=== PATIENT | male | born 1950 | race Caucasian/White ===

== ENCOUNTER → 2018-01-18 07:31 | Outpatient (CLI) | payer OTHER, SELFPAY ==
[2018-01-18 08:08] LABS: Add Manual Diff / Slide Review NO; Basophils Percent Auto 1.1 % (0-2); Eosinophils Percent Auto 2.8 % (2-4); Hematocrit 42.6 % (41-53); Hemoglobin 14.6 g/dL (13.5-17.5); Mean Corpuscular HGB Conc 34.1 % (30-36); Mean Corpuscular Hemoglobin 32.7 PG (26-34); Mean Corpuscular Volume 95.8 fL (80-100); Monocytes Percent Auto 10.2 % (3-14); Neutrophils Absolute Auto 5100 /uL (3000-5900); Neutrophils Percent Auto 68.9 % (50-75); Platelet Count 307 X10^3/uL (150-400); Red Blood Cell Count 4.45 X10^6/uL (4.5-5.9); Red Cell Distribution Width 14.1 % (11.6-14.8); White Blood Cell Count 7.5 X10^3/uL (4.5-11.0)
[2018-01-18 08:18] LABS: Blood Urea Nitrogen 20 mg/dL (9-20); Calcium 9.2 mg/dL (8.4-10.2); Carbon Dioxide 27 mmol/L (22-32); Chloride 104 mmol/L (98-107); Estimated Glomerular Filt Rate > 60.0 mL/min (>60); Glucose 99 mg/dL (80-110); HEMOLYSIS < 15 (0-50); Sodium 142 mmol/L (137-145)
== END ==
PROVIDERS: Visit Provider Orthopaedic Surgery Orthopaedic Surgery of the Spine
DX: Z01.812 Encounter for preprocedural laboratory examination (principal)
CPT/HCPCS: 36415; 80048; 85025; 93005

== ENCOUNTER 2018-02-15 06:13 | Inpatient (IN) | payer OTHER, MEDICARE, SELFPAY ==
[2018-01-28 10:50] VITALS: BMI 27.0
[2018-02-15] VITALS (17 sets, daily range): BP systolic 88–134; BP diastolic 53–99; PULSE 76–96; RESP 10–18; TEMP 36.1–36.8; O2SAT 94–99; BMI 27.0; BMI 29.5
--- NOTE | 2018-02-15 | DI.RAD.S_ITS ---
PROCEDURE: XR LUMBAR SPINE 2-3V INDICATIONS: L4-5, L5-S1 TLIF TECHNIQUE: 2 views of the lumbar spine were acquired. COMPARISON: [facility], , MR LUMBAR SPINE WO CON, 07/24/2017, 9:04. FINDINGS: 2 intraoperative fluoroscopy images demonstrate discectomy and posterior fusion at L4-L5 and L5-S1. Pedicular screws and fusion rods are in expected position. IMPRESSION: Discectomy and posterior fusion at L4-L5 and L5-S1. Dictated by: Adrian Sarkar M.D. on 02/15/2018 at 13:59 Approved by: Adrian Sarkar M.D. on 02/15/2018 at 14:00
[2018-02-15] MEDS: LACTATED RINGERS 1,000 ML 42 ML IV (07:20)
[2018-02-15] MEDS: CEFAZOLIN 2 GM/100 ML FROZ.PIGGY IV ×3 (07:53→23:51)
[2018-02-15] MEDS: ACETAMINOPHEN 1,000 MG/100 ML VIAL IV (08:05)
--- NOTE | 2018-02-15 08:35 | SUR.OPER ---
Prone on spine table, head in foam head support, padded chest and pelvic supports, gel pad at knees, lower legs supported by pillows; nipples, genitalia and toes free of pressure, arms secured on foam padded arm boards at <90 degrees abduction. Tape over blanket at thigh secured to table.
[2018-02-15] MEDS: BUPIVACAINE 0.25% W/ EPI VIAL 30 ML INJ (08:42)
[2018-02-15] MEDS: BUPIVACAINE LIPOSOME 266 MG/20 ML VIAL INJ (08:43)
--- NOTE | 2018-02-15 11:56 | PM.OP.1 ---
Operative Date/Time/Diagnoses Date of procedure: 02/15/18 Time of procedure: 08:21 Pre-op diagnosis: 1. L3-4, L4-5, L5-S1 spinal stenosis 2. L3-4, L4-5, L5-S1 spondylosis with radiculopathy Post-op diagnosis: same Procedure & Clinicians Procedure: 1. L4-5, L5-S1 Postero-lateral and posterior interbody fusion 2. L4-5, L5-S1 interbody cage placement. 3. L4-5, L5-S1 decompressive laminectomy with bilateral facetecomies 4. L4-5, L5-S1 Posterior segmental instrumentation 5. L3-4 hemilaminectomy 5. Luxor of bone marrow from iliac crest 6. Utilization of microsurgical technique and operating microscope Same procedure as scheduled: Yes Indications: Patient has been having chronic back pain and worsening lumbar radiculopathy. Patient failed multiple conservative management with worsening pain weakness and numbness in her lower extremity. Patient has been having difficulty performing activity of daily living. After discussing risks benefits of treatment options, patient elected proceed with surgery. Surgeon: Ismael Hammonds Suppression Crew Leader: Haley Foley Click Yes if Unassisted: No Anesthesia Type: General Operative Notes Closure Type: primary Implants & Drains: Globus Revolve screws, Rise cages Applied: catheter Estimated Blood Loss (mL): 50 Blood products transfused: none Procedure in detail: Patient was seen in the preoperative area. Risks and benefits of the surgery was discussed with the patient. Informed consent was obtained from the patient and placed in the chart. Surgical site was marked. Patient was taken to the operative room. General anesthesia was administered. Prophylactic antibiotic was given to the patient less than 30 min before the incision was made. Patient was placed into a prone position on the Ezequiel table. Patient's back was then prepped and draped in the sterile fashion. Time-out was performed at this time. Using AP and lateral C-arm imaging the interval between L4-S1 was identified and marked on patient's back. A 2 inch incision 2 in from midline was made on the right side first. The fascia was incised in line with skin incision. Globus MARS retractors was placed inside the incision and docked onto the L4 and L5 lamina. Using microsurgical technique and operating microscope, a L4 and L5 laminectomy and L4-5 L5-S1 facetectomy was performed using a Kerrison rongeur. The disc space at L4-5, L5-S1 was identified. And a total diskectomy was performed at L4-5, L5-S1 level. The endplates were decorticated using a rasp and shaver. The total diskectomy and decortication was performed at L4-5, L5-S1 level in order to to accomplish a L4-5, L5-S1 fusion. The local bone from the laminectomy and facetectomy was saved for local bone grafting. After the total diskectomy and decortication was completed, Globus viacell bone graft material was combined with local bone that was harvested earlier. At this time, a separate skin is incision was made over the iliac crest. A Jamshidi needle was inserted into the iliac crest through a separate skin incision. 5 cc of bone marrow aspiration was obtained through the separate skin incision using a Jamshidi needle from the iliac crest. The bone marrow aspiration was combined with local bone and the via cell bone grafting material. The bone grafting material was placed into the L4-5, L5-S1 interbody space along with two cages, one expandable cage at each level. The cages were expanded to their maximum height using the torque limiting screwdriver. At this time the MARS retractor was redirected over the L3 lamina. Using microsurgical technique and operating microscope, a L3-4 heminectomy was performed using the Kerrison rongeur. The ligamentum flavum was also resected at the side of the hemilaminectomy for further decompression of the epidural space. At this time a mirror image incision was made on the left side. The fascia was incised in line with the skin incision. Globus MARS retractor was inserted and docked onto the L4-5, L5-S1 posterolateral gutter. Using the power drill, posterior-lateral decortication was performed at L4-5, L5-S1 level until bleeding cortical bone was identified. The remaining bone grafting material was placed into the L4-5 L5-S1 posterior lateral gutter he order to accomplish posterolateral fusion at the L4-5 L5-S1 levels. Using the double C-arm technique, pedicle screws were placed into the L4, L5, S1 pedicles bilaterally. This was done by placing the Jamshidi needle into the pedicles, then placing the guidewires over the Jamshidi needle, and finally placing the cannulated screws over the guidewires bilaterally. After the pedicle screws were placed, 2 titanium rods was locked into the heads of the pedicle screws using locking caps and torque limiting screwdriver. Total 6 pedicles screws were placed. After all the hardware was placed, and confirmed with AP and lateral C-arm imaging, the wound was then irrigated with sterile normal saline and packed with Ray-Renae gauze for 3 min to accomplish hemostasis. After the gauze was removed the deep fascia was closed with #1 Vicryl suture. The subcutaneous layer was closed with 2-0 Vicryl. The skin was closed with skin sunday. Patient tolerated the procedure well. There were no complications. Complications: none Condition: stable Disposition: PACU Plan for aftercare: Admit to inpatient hospital
--- NOTE | 2018-02-15 12:40 | SUR.PHASEI ---
1213 Kunz cath secured to left thigh. Scd's on. Skin warm and dry, resp unlabored.
[2018-02-15] MEDS: HYDROMORPHONE 2 MG INJ 0.5 MG IV (12:58)
--- NOTE | 2018-02-15 13:28 | SUR.PHASEI ---
1315 late entry; Prepared to take to acute care. scant drainage on left lateral steri-strips. Skin warm and dry, resp even and regular. Moving independently in bed, reminded not to twist; to log roll. To room 203, bed down and locked, call light within reach, report given, SCD's on; present, Urine clear yellow to gravity. No questions from staff. clothing bag to room.
--- NOTE | 2018-02-15 13:40 | PC.NURSE ---
POST OP ARRIVAL - pt is awake, states not Pain, moving restlessly in bed, +cms feet, wiggles toes on command, footie scd on, ra 95%, bs clear, has some slight serosang drainage leakage from the steristrips l torso, dsg cdi, placed a folded 2x2 w/op site over the steristrips, repositioned more comfortably, garcia w/small qty yellow urine, per PACU nurse, emptied 150ml prior to transfer, denies nausea and given ice chips.
[2018-02-15] MEDS: hydrOXYzine pamoate 25 MG CAPSULE PO ×3 (14:00→23:52)
[2018-02-15] MEDS: HYDROMORPHONE 1 MG INJ 0.5 MG IV (14:02)
[2018-02-15] MEDS: SODIUM CHLORIDE 0.9% 1,000 ML 100 ML IV (14:09)
--- NOTE | 2018-02-15 15:44 | PC.NURSE ---
Day Shift- Report rec'd from VALERIA Rahman in PACU at 1305 on current pt status. Pt arrived to unit via bed into room 203 at 1320, Floor RN Samreen able to do bedside report from TRAILER BODY ASSEMBLER. Pt c/o lower back hurt, tight, how I feel at home with my back pain. Pt repeated that he needs to get OOB and walk to help his low back pain. Reinforced that he just came from recovery and we will have PT see him as soon as possible. Pt repositioned in bed onto right side supported with pillows and used FARHAT bed to tilt as well. Ice pack placed to low back. Vistaril & Dilaudid prn given at 1405. Pt's Leena at bedside for support.
--- NOTE | 2018-02-15 16:58 | PT.IIE ---
Current Diagnoses Spondylolisthesis, lumbosacral region (02/15/18) Other spondylosis with radiculopathy, lumbar region (02/15/18) Spinal stenosis, lumbar region without neurogenic claudication (02/15/18) Surgery Performed Operation Date: 02/15/18 07:45 Actual Procedures p L3-4 left Hemilaminectomy, L4-5, L5-S1 TLIF w/Posterior Instru. - Ismael Hammonds MD Surgical History (Last Updated 01/28/18 @ 11:18 by Jennifer Manzo RN) H/O vasectomy (Acute) Hx of detached retina repair (Acute) Hx of hernia repair (Acute) Hx of tonsillectomy (Acute) Status post cataract extraction of both eyes with insertion of intraocular lens (Acute) Status post knee surgery Medical History (Last Updated 01/28/18 @ 11:18 by Jennifer Manzo RN) Arthritis (Acute) Back pain (Acute) Elevated cholesterol (Acute) Malignant melanoma (Acute ~1997) Migraines (Acute) Nerve pain due to spinal stenosis (Acute) Numbness (Acute) Osteoarthritis (Acute) RLS (restless legs syndrome) (Acute) Spinal stenosis (Acute) Spondylolisthesis at L5-S1 level (Acute) Physical Therapy Inpatient Evaluation/Re-Eval M1 PT/OT-IP Prior Functional Status Start: 02/15/18 16:21 Freq: NEEDED Status: Active Protocol: Document 02/15/18 16:15 NFW (Rec: 02/15/18 16:58 NFW [id number]) Medical Review Prior Functional Status Medical History Reviewed Yes Diet/Fluid Consistency Regular Communication Patient has been restless since arriving on the floor and anxious to get up. Mobility and Gait Prior to surgery patient did not use any assistive devices for mobility or gait. Activities of Daily Living and IADL's Pt reports independence in dressing including shoes and socks prior to surgery. He also reports independence with hygiene. Prior Functional Level (Other details) Pt able to drive as needed. Works fulltime in the [employer]. Social History Household Members spouse Living Arrangements House Number of Floors (Floors) Two Floors Number of Stairs To Enter/Railing? 2 steps to enter home, no railing. 2 steps then 13 steps to go upstairs where his bedroom is. Handrail on the left with ascending. has made adjustments in the home for pt to stay downstairs until he is able to handle the stairs. Home Environment Standard Height Toilet Tub/Shower Home Equipment Front Wheel Walker Straight Cane Long Handled Sponge Long Handled Shoe Horn Employment Status Construction Executive Employed Additional Social History Comment At work he does average 1.7 miles of walking each day. He also has days where he is in the car for extended times. M2 PT-IP Current Condition Start: 02/15/18 16:21 Freq: NEEDED Status: Active Protocol: Document 02/15/18 16:15 NFW (Rec: 02/15/18 16:58 NFW [id number]) Physical Therapy Current Condition Current Condition Evaluation Date 02/15/18 Treatment Diagnosis s/p L4-5, L5-S1 Postero- lateral and posterior interbody fusion Onset Date 02/15/18 Precautions Lumbar Precautions Log Roll No Twisting Limit Bending Lifting Restriction of 10 lbs Other Precautions Stated lifting restriction of 5 lbs. Discussion proper hinging at hips and avoiding any flexion at the spine. Weight Bearing Status Weight Bearing Status Full Weight Bearing M3 PT-IP Subjective Start: 02/15/18 16:21 Freq: NEEDED Status: Active Protocol: Document 02/15/18 16:15 NFW (Rec: 02/15/18 16:58 NFW [id number]) Subjective Physical Therapy Visit Type Type Initial Evaluation Visit Start Time 15:25 Visit Stop Time 16:15 Total Visit Minutes 50 Number of REAL ESTATE OFFICE MANAGER Visits 0 Physical Therapy Visit Comments Patient Comments Patient uncomfortable in bed and restless. Patient Goals Return home with , Eneida . Therapy Pain Assessment Pain When Pain Assessed During Mobility M4 PT-IP Mobility and Gait Start: 02/15/18 16:21 Freq: NEEDED Status: Active Protocol: Document 02/15/18 16:15 NFW (Rec: 02/15/18 16:58 NFW [id number]) PT-Bed Mobility Assessment Rolling Type of Rolling Roll to Right Level of Assist Minimal Assistance 1 Person Assistance Supine to Sit Supine to Sit Minimal Assistance 1 Person Assistance Scooting Scooting to Edge of Bed Contact Guard Assistance PT-Transfer Assessment Sit to and From Stand Sit to and from Stand Contact Guard Assistance 1 Person Assistance Equipment Transfer Assistive Device Gait Belt Front Wheeled Walker Orthotic/Prosthetic Devices or Brace: No Transfers Transfer Destination Chair Transfer Ability Level of Assist Contact Guard Assistance 1 Person Assistance Comments Mobility Comments BP at rest 129/88, pulse 92. BP siting 143/69, pulse 97. O2 95 Gait Assessment Gait Gait Assistance Required: Contact Guard Assist Distance (Feet) 30 Able to Maintain Weight Bearing Status Yes During Gait Assistive Devices Assistive Device Gait Belt Front Wheeled Walker Orthotic/Prosthetic Devices or Brace: No Gait Deviations General Gait Pattern Decreased Stride Length Factors Limiting Gait Function Factors Limiting Gait Function Abnormal Tonal Influences Decreased Activity Tolerance Decreased Strength Comments Gait Comments Patient ambulated 15' x 2 CGA. Some lightheadedness noted after each walk. PT-Balance Assessment Sitting Balance and Reactions Static Sitting Balance Ability Good Dynamic Sitting Balance Ability Good Standing Balance and Reactions Static Standing Balance Ability Good Dynamic Standing Balance Ability Good M5 PT-IP Objective Assessments Start: 02/15/18 16:21 Freq: NEEDED Status: Active Protocol: Document 02/15/18 16:15 NFW (Rec: 02/15/18 16:58 NFW [id number]) Orientation Orientation/Cognition Level of Alertness Alert Language Function Ability No Deficits Noted Safety Awareness Understands Safety Issues Memory Description No Deficits Noted Gross Range of Motion Lower Extremity ROM Assessment Within Functional Limits Strength Comments Strength Comments MMT to long toe extensors 5/5 nyla. Sensation Assessment Sensation Gross Sensation WNL Light Touch Intact Proprioception (Position) Intact Muscle Tone Muscle Tone WNL Yes M6 PT-IP Treatment Start: 02/15/18 16:21 Freq: NEEDED Status: Active Protocol: Document 02/15/18 16:15 NFW (Rec: 02/15/18 16:58 NFW [id number]) Physical Therapy Treatment Education Education Provided Precautions Post-Op Packet Safety M7 PT-IP Assessment and Plan Start: 02/15/18 16:21 Freq: NEEDED Status: Active Protocol: Document 02/15/18 16:15 NFW (Rec: 02/15/18 16:58 NFW [id number]) PT Summary Assessment and Plan Potential Rehabilitation Potential Excellent Status of Condition at Evaluation Stable Summary Impairments Pain ROM Strength Balance Coordination Tone Bed Mobility Transfers Gait Activity Tolerance Progress Towards Goals Progressing Toward Goals Assessment Summary Pt s/p lumbar fusion. Main complaint of restlessness. Revealed good form and judgement with bed mobility activities and ambulation. Endurance and general strength needs improvement. Receptive to educational material provided. Goals Bed Mobility Goal Independent Transfer Goal Independent Gait Goal Independent Other Goals Ability to ascend and descend 2 steps with SPC. Days to Meet Goals 2 Frequency of Treatment Frequency Of Treatment Twice a Day Treatment Plan Physical Therapy Treatment Plan Bed Mobility Training Transfer Training Gait Training Therapeutic Exercise Balance Retraining Post Op Education Coordination Retraining Recommendations To Nursing Amount of Assist Needed 1 Person Assist Discharge Recommendations PT Discharge Recommendations Home with Assistance Other Discharge Recommendations Home with .
[2018-02-15] MEDS: ACETAMINOPHEN 325 MG TABLET 650 MG PO (17:26)
[2018-02-16] MEDS: SODIUM CHLORIDE 0.9% 1,000 ML 100 ML IV (00:01)
[2018-02-16] MEDS: ACETAMINOPHEN 325 MG TABLET 650 MG PO ×3 (05:04→20:30)
[2018-02-16 05:19] VITALS: BP 111/58; PULSE 92; RESP 16; TEMP 37.4; O2SAT 95
[2018-02-16 06:25] LABS: Hematocrit 35.9 % (41-53); Hemoglobin 12.3 g/dL (13.5-17.5)
[2018-02-16 08:30] VITALS: BP 103/66; PULSE 93; RESP 16; TEMP 36.6; O2SAT 94
[2018-02-16] MEDS: hydrOXYzine pamoate 25 MG CAPSULE PO ×3 (08:32→16:56)
--- NOTE | 2018-02-16 09:18 | PM.PNPO.1 ---
Subjective Date Patient Seen: 02/16/18 Time Patient Seen: 09:18 Interval history: Hospital day 2, postop day 1 following L3-4 hemilaminectomy, L4-5, L5-S1 TLIF with cage and anterior plate by Dr. Hammonds. Patient is remained stable postoperatively. Has noted some increased numbness to the bilateral anterior thighs. The lower legs good. Does have Kunz catheter in which was to remain in for 2 days postop. He has been up with physical therapy. Lab this morning noted H&H 12.3/35.9. Exam Vital Signs (past 8 hours): - 02/16/18 05:19 02/16/18 08:30 Temperature 99.3 F 97.8 F Pulse Rate 92 H 93 H Respiratory Rate 16 16 Blood Pressure 111/58 L 103/66 Pulse Oximetry 95 94 Oxygen Delivery Method Room Air Oxygen Flow Rate 0 Narrative Exam Narrative: Alert, oriented no acute distress resting in bed. Back dressing to lumbar area is dry with some small areas of shadowing. Smaller dressing to the left back as gauze and Tegaderm with serosanguineous drainage. This appears dry. Legs. No calf pain or swelling. Pulses symmetrical. Good sensation to touch to lower legs but has decreased sensation to bilateral thighs. Good strength on ankle dorsiflexion plantar flexion. He is able to fire her quads bilateral. Objective Labs Result Diagrams: 02/16/18 06:13 Labs: Laboratory Results - last 24 hr 02/16/18 06:13 Hgb 12.3 L Hct 35.9 L Assessment & Plan Post-op Postoperative Procedures Operation Date: 02/15/18 07:45 Actual Procedures Side Surgeon p L3-4 left Hemilaminectomy, L4-5, L5-S1 TLIF w/Posterior Instru. Ismael Hammonds MD Plan: I will add dexamethasone 4 mg q.8h to see if this will help with his back and leg symptoms. Patient will work with physical therapy today. Anticipate discharge home tomorrow if he is stable with physical therapy and able to void. Quality VTE Deep Vein Thrombosis/Pulmonary Embolism Present on Admission: No
--- NOTE | 2018-02-16 10:18 | CM.DANOTE ---
Patient is a 68 year old male who was admitted on 02/15/18 for TLIF. Pt has [facility] for insurance and his PCP is Dr. Mason. EMR was reviewed. Per Ortho MD, pt tolerated surgical procedure well yesterday and per PT pt can likely d/c safely home with spouse assist when medically stable but still needs to do CG training. SW met bedside with pt and explained role and pt confirmed that he lives at home with his in [place] and is very Independent at baseline and is quite active. Pt does not use DME for ambulation at baseline and drives and has a plan to stay in the main level bedroom in their house for a while prior to doing stairs to get to their second level. Pt preference is to d/c home and does not anticipate any d/c planning needs. Pt's spouse can likely provide transport at d/c. Plan: SW to follow for likely pt d/c home with spouse assist when medically stable. SW to follow for any further identified discharge planning needs. YAYA Duron Discharge Planning/Care Management CM Discharge Assessment Start: 02/16/18 10:11 Freq: Status: Active Protocol: Document 02/16/18 10:12 BF (Rec: 02/16/18 10:18 [id number]) Discharge Planning Assessment Assigned Pulmonologist Intensivist YAYA Loving DPOA/Assigned Designee Name Eneida Contact Information [phone] Advance Directives? Yes Advance Directives on File No History Provided By Patient Significant Other Medical Record Has Patient been admitted in last 30 No days? Prior Living Arrangements House Household Members spouse Type of transporation used prior to Drives own vehicle admit Comment Independent at baseline and no DME needed at base. Independent with ADL's Yes Is patient alert and oriented? Yes Caregiver for Another No Comment Likely home with spouse assist when stable Barriers to Discharge No Discharge Plan Home Community Services Physical Therapy Transportation Arrangement Spouse likely can provide transport at d/c. Referrals Initiated None needed Whiteboard Updated in Patient Room with Yes name and ext. # of Pulmonologist Intensivist Review Status In Process Please Provide Date Initial DC 02/16/18 Assessment Was Performed Next Review Type Continued Stay Review Pre-Anesthesia Assessment Start: 01/28/18 10:50 Freq: Status: Complete Protocol: Document 01/28/18 10:50 CAB (Rec: 01/28/18 11:28 CAB [id number]) Pre-Anesthesia Assessment Patient Also Known As Patel (AKA) Patient Information Reviewed Via Phone Assessment Assessment Completed With Patient Lab Results BMP/CMP CBC EKG Comment Labs/EKG at 01/18/18 Primary Care Provider Andrew Mason Seen Specialist in Last 12 Months Yes Specialist Seen Orthopedist Primary Language Lao Montessori Preschool Teacher Required No Height 172.72 cm Weight 80.739 kg Body Mass Index (BMI) 27.0 Hearing Ability Normal Visual Impairment No Limitations Visual Assist None Dentition Type Teeth, Natural Present Dental Implants Barriers to Learning None Other Aids No Hx Anesthesia Reactions No Hx Family Anesthesia Reaction No Hx Malignant Hyperthermia No Hx Blood Transfusions No Anesthesia Review Requested No Residential Pest Control Technician No alcohol intake current alcohol intake frequency a few times a month Smoking Status Current every day smoker Smoking packs per day 0.75 Substance Use Type does not use Pain Present Pain Reported Musculoskeletal Symptoms Abnormal Gait Back Pain Difficulty Walking Muscle Spasms Muscle Weakness Numbness History of Falling (Recent or History of No ) Patient is completely paralyzed or No completely immobile Mental Status Oriented to own ability Is patient on oxygen? No Does patient have BURTON/SOB No Hx Sleep Apnea No Suspected Sleep Apnea No Currently Taking a Beta Jeannie No Can You Climb a Flight of Stairs Without Yes SOB Hx Chest Pain No Hx SOB No Hx Syncope or Dizziness No Anti-Coagulant Therapy No Has a Education And Training Coordinator No Cardiac Testing No Hx Pacemaker/ICD No Pacemaker Rep Required? No Cardiac Clearance Received Not Applicable Diet Type At Home Regular dysphagia No Urinary Catheter Present No Hx Urinary Self Catheterization No Diabetes No Hx Drug Resistant Organism No Presence of External or Internal Medical No Devices Have you traveled outside the [facility] States in the last 30 days? Marital Status Lives With spouse Prior Living Arrangements House Number of Floors (Floors) Two Floors Number of Stairs To Enter/Railing? 1 step, no railing Support System Child/Children Sibling(s) Spouse Does the Patient Have Assistance After Yes Surgery Patient Discharge Plan Description Return Home Comment Pt advised 2 day length of stay per surgeon's office Feels Safe in Current Environment Yes Been Physically Hurt or Threatened By a No Person in Current Environment Do you have thoughts of harming yourself None or others? Are you currently considering suicide? No Do you have a plan to hurt yourself or No Plan others? Do You Have Any Spiritual Beliefs That No May Affect Your HC Choices? Do You Have Any Cultural Practices That No May Affect Your HC Choices? Spiritual Referral In-House School Inspector Comment Zoroastrianism Who Can We Speak to About Patient's Care Family, friends Identifying Code for Release of Patient Declines to issue Information Health Care Proxy/Next of Kin Eneida () Health Care Proxy Emergency Contact Name Eneida () Emergency Contact Advance Directives? Yes Advance Directives on File No Requested Patient Bring Advanced Yes Directives DOS Power of Operational Communication Chief Yes Power of Operational Communication Chief Name Eneida () Power of Operational Communication Chief PAC Instructions Durable medical equipment Medications to take/avoid Nasal antibiotic No ETOH/petroleum product on skin DOS NPO Post-op transportation Pre-surgical wash Sturdy shoes/comfortable clothes Do not bring valuables and remove jewelry
[2018-02-16] MEDS: DEXAMETHASONE 4 MG TABLET PO ×2 (10:38→16:56)
[2018-02-16] MEDS: OXYCODONE IR 10 MG TABLET PO ×4 (10:40→20:31)
--- NOTE | 2018-02-16 10:45 | PT.IPTN ---
Current Diagnoses Spondylolisthesis, lumbosacral region (02/15/18) Other spondylosis with radiculopathy, lumbar region (02/15/18) Spinal stenosis, lumbar region without neurogenic claudication (02/15/18) Surgery Performed Operation Date: 02/15/18 07:45 Actual Procedures p L3-4 left Hemilaminectomy, L4-5, L5-S1 TLIF w/Posterior Instru. - Ismael Hammonds MD Physical Therapy Treatment Note M2 PT-IP Current Condition Start: 02/15/18 16:21 Freq: NEEDED Status: Active Protocol: Document 02/16/18 10:45 [facility] (Rec: 02/16/18 11:38 [facility] [id number]) Physical Therapy Current Condition Current Condition Evaluation Date 02/15/18 Treatment Diagnosis s/p L4-5, L5-S1 Postero- lateral and posterior interbody fusion Onset Date 02/15/18 Precautions Lumbar Precautions Log Roll No Twisting Limit Bending Lifting Restriction of 10 lbs Other Precautions Stated lifting restriction of 5 lbs. Discussion proper hinging at hips and avoiding any flexion at the spine. Weight Bearing Status Weight Bearing Status Full Weight Bearing M3 PT-IP Subjective Start: 02/15/18 16:21 Freq: NEEDED Status: Active Protocol: Document 02/16/18 10:45 [facility] (Rec: 02/16/18 11:38 [facility] [id number]) Subjective Physical Therapy Visit Type Type Treatment Note Visit Start Time 10:14 Visit Stop Time 10:45 Total Visit Minutes 31 Number of MILLING MACHINE OPERATOR GEAR Visits 0 Physical Therapy Visit Comments Patient Comments pt reports he is still numb in the B thighs. Therapy Pain Assessment Pain When Pain Assessed During Mobility Pain Present Pain Present Pain Reported Location Lower Back Intensity 8 Scale Used Numeric (1 - 10) M4 PT-IP Mobility and Gait Start: 02/15/18 16:21 Freq: NEEDED Status: Active Protocol: Document 02/16/18 10:45 [facility] (Rec: 02/16/18 11:38 [facility] [id number]) PT-Bed Mobility Assessment Rolling Type of Rolling Log Rolling Level of Assist Standby Assistance Sit to Supine Sit to Supine Standby Assistance PT-Transfer Assessment Sit to and From Stand Sit to and from Stand Independent Equipment Transfer Assistive Device Gait Belt Front Wheeled Walker Transfers Transfer Destination Bed Transfer Technique Stand Step Pivot Transfer Ability Level of Assist Standby Assistance Comments Mobility Comments no cuing required for reverse log roll into bed. Gait Assessment Gait Gait Assistance Required: Standby Assistance Distance (Feet) 250 Assistive Devices Assistive Device Gait Belt Front Wheeled Walker Gait Deviations General Gait Pattern Antalgic Factors Limiting Gait Function Factors Limiting Gait Function Pain Stair Climbing Assessment Evaluation Level of Assist On Stairs Standby Assistance Devices Stair Climbing Assistive Devices Left Railing Technique/Endurance Stair Climbing Direction Ascend and Descend Stair Climbing Technique Step to Step Number of Steps Climbed 3 Query Text: M5 PT-IP Objective Assessments Start: 02/15/18 16:21 Freq: NEEDED Status: Active Protocol: Document 02/16/18 10:45 [facility] (Rec: 02/16/18 11:38 [facility] [id number]) Sensation Assessment Comments Sensation Comments intact light touch Bilateral thighs, pt agrees he can feel it but feels different M6 PT-IP Treatment Start: 02/15/18 16:21 Freq: NEEDED Status: Active Protocol: Document 02/16/18 10:45 [facility] (Rec: 02/16/18 11:38 [facility] [id number]) Physical Therapy Treatment Education Education Provided Precautions Safety M7 PT-IP Assessment and Plan Start: 02/15/18 16:21 Freq: NEEDED Status: Active Protocol: Document 02/16/18 10:45 [facility] (Rec: 02/16/18 11:38 [facility] [id number]) PT Summary Assessment and Plan Summary Progress Towards Goals Progressing Toward Goals Safe For Discharge Assessment Summary Pt at this time has ambulated 250 ft with a FWW and SBA, and also completed stairs safely with SBA. Pt with high levels of reported pain but is able to mobilize safely. He initially had c/o numbness in the bilateral thighs, but light touch intact and no buckling. Expect pt to be able to d/c home when medically stable. Goals Bed Mobility Goal Independent Transfer Goal Independent Gait Goal Independent Other Goals Ability to ascend and descend 2 steps with SPC. Days to Meet Goals 2 Frequency of Treatment Frequency Of Treatment Twice a Day Treatment Plan Other Recommendations and Next Treatment cont. mobility, log roll, Focus review precautions, gait. Recommendations To Nursing Amount of Assist Needed 1 Person Assist Discharge Recommendations PT Discharge Recommendations Home with Assistance Other Discharge Recommendations Home with .
[2018-02-16 11:30] VITALS: BP 114/66; PULSE 79; RESP 16; TEMP 37.2; O2SAT 97
--- NOTE | 2018-02-16 13:42 | OT.IP.EVAL ---
Current Diagnoses Spondylolisthesis, lumbosacral region (02/15/18) Other spondylosis with radiculopathy, lumbar region (02/15/18) Spinal stenosis, lumbar region without neurogenic claudication (02/15/18) Surgery Performed Operation Date: 02/15/18 07:45 Actual Procedures p L3-4 left Hemilaminectomy, L4-5, L5-S1 TLIF w/Posterior Instru. - Ismael Hammonds MD Past Medical History (Last Updated 01/28/18 @ 11:18 by Jennifer Manzo RN) Arthritis (Acute) Back pain (Acute) Elevated cholesterol (Acute) Malignant melanoma (Acute ~1997) Migraines (Acute) Nerve pain due to spinal stenosis (Acute) Numbness (Acute) Osteoarthritis (Acute) RLS (restless legs syndrome) (Acute) Spinal stenosis (Acute) Spondylolisthesis at L5-S1 level (Acute) Surgical History (Last Updated 01/28/18 @ 11:18 by Jennifer Manzo RN) H/O vasectomy (Acute) Hx of detached retina repair (Acute) Hx of hernia repair (Acute) Hx of tonsillectomy (Acute) Status post cataract extraction of both eyes with insertion of intraocular lens (Acute) Status post knee surgery Occupational Therapy Inpatient Evaluation/Re-Eval M1 PT/OT-IP Prior Functional Status Start: 02/15/18 16:21 Freq: NEEDED Status: Active Protocol: Document 02/15/18 16:15 [facility] (Rec: 02/15/18 16:58 [facility] [id number]) Medical Review Prior Functional Status Medical History Reviewed Yes Diet/Fluid Consistency Regular Communication Patient has been restless since arriving on the floor and anxious to get up. Mobility and Gait Prior to surgery patient did not use any assistive devices for mobility or gait. Activities of Daily Living and IADL's Pt reports independence in dressing including shoes and socks prior to surgery. He also reports independence with hygiene. Prior Functional Level (Other details) Pt able to drive as needed. Works fulltime in the [employer]. Social History Household Members spouse Living Arrangements House Number of Floors (Floors) Two Floors Number of Stairs To Enter/Railing? 2 steps to enter home, no railing. 2 steps then 13 steps to go upstairs where his bedroom is. Handrail on the left with ascending. has made adjustments in the home for pt to stay downstairs until he is able to handle the stairs. Home Environment Standard Height Toilet Tub/Shower Home Equipment Front Wheel Walker Straight Cane Long Handled Sponge Long Handled Shoe [place] Employment Status [employer] Employed Additional Social History Comment At work he does average 1.7 miles of walking each day. He also has days where he is in the car for extended times. M1 PT/OT-IP Prior Functional Status Start: 02/16/18 13:31 Freq: NEEDED Status: Active Protocol: Document 02/16/18 13:32 [facility] (Rec: 02/16/18 13:42 [facility] [id number]) Medical Review Prior Functional Status Medical History Reviewed Yes Diet/Fluid Consistency Regular Communication Independent. Mobility and Gait Prior to surgery patient did not use any assistive devices for mobility or gait. Activities of Daily Living and IADL's Pt reports independence in dressing including shoes and socks prior to surgery. He also reports independence with hygiene. Prior Functional Level (Other details) Pt able to drive as needed. Works fulltime in the [employer]. Social History Household Members spouse Living Arrangements House Number of Floors (Floors) Two Floors Number of Stairs To Enter/Railing? 2 steps to enter home, no railing. 2 steps then 13 steps to go upstairs where his bedroom is. Handrail on the left with ascending. has made adjustments in the home for pt to stay downstairs until he is able to handle the stairs. Home Environment Standard Height Toilet Tub/Shower Home Equipment Front Wheel Walker Straight Cane Long Handled Sponge Long Handled [place] Employment Status [employer] Employed Additional Social History Comment At work he does average 1.7 miles of walking each day. He also has days where he is in the car for extended times. M2 OT-IP Current Condition Start: 02/16/18 13:31 Freq: Status: Active Protocol: Document 02/16/18 13:32 [facility] (Rec: 02/16/18 13:42 [facility] [id number]) Occupational Therapy Current Condition Current Condition Evaluation Date 02/16/18 Treatment Diagnosis Spinal Stenosis Diagnosis Onset Date 02/15/18 Post Operative Precautions Lumbar Precautions Log Roll No Twisting Limit Bending Lifting Restriction of 10 lbs Other Precautions Stated lifting restriction of 5 lbs. Discussion proper hinging at hips and avoiding any flexion at the spine. Weight Bearing Status Weight Bearing Status Full Weight Bearing M3 OT- IP Subjective and Pain Start: 02/16/18 13:31 Freq: Status: Active Protocol: Document 02/16/18 13:32 [facility] (Rec: 02/16/18 13:42 [facility] [id number]) OT- Subjective Occupational Therapy Visit Type Type Initial Evaluation Visit Start Time 13:05 Visit Stop Time 13:25 Total Visit Minutes 20 Occupational Therapy Visit Comments Patient/Caregiver Goals Pt to go home tomorrow. OT Pain Assessment Pain When Pain Assessed At Rest Pain Present Pain Present Denied Pain M4 OT- IP ADL's Start: 02/16/18 13:31 Freq: Status: Active Protocol: Document 02/16/18 13:32 [facility] (Rec: 02/16/18 13:42 [facility] [id number]) OT ADL-Dressing General Eval Lower Body Dressing Ability Standby Assistance Comments OT Dressing Comments Pt able to use AED for LB dressing needs with good safety. OT ADL-Bathing Comments OT Bathing Comments Pt to look at getting either shower chair with suction cup grab bar versus tub bench. M5 OT- IP IADL's Start: 02/16/18 13:31 Freq: Status: Active Protocol: Document 02/16/18 13:32 [facility] (Rec: 02/16/18 13:42 [facility] [id number]) OT-Instrumental Activities of Daily Living Money Management Money Management Caregiver Provides Assistance M6 OT- IP Functional Cognition Start: 02/16/18 13:31 Freq: Status: Active Protocol: Document 02/16/18 13:32 [facility] (Rec: 02/16/18 13:42 [facility] [id number]) Cognitive Factors Limiting Selfcare Function Cognitive Ability Level of Alertness Alert Patient Orientation Name Place Situation Attention Span Ability Capable of Focused Attention Capable of Sustained Attention Ability to Follow Commands Able to Follow Multi-Step Commands Memory Description Short Term Impaired Safety Awareness Decreased Ability to Apply Precautions Underestimates Need for Assistance M7 OT- IP Mobility and Balance Start: 02/16/18 13:31 Freq: Status: Active Protocol: Document 02/16/18 13:32 [facility] (Rec: 02/16/18 13:42 [facility] [id number]) OT- Bed Mobility Assessment Rolling Type of Rolling Roll to Right Level of Assistance Standby Assistance Supine to Sit Supine to Sit Assist Standby Assistance Sit to Supine Sit to Supine Assist Standby Assistance Scooting Scooting to Edge of Bed Standby Assistance OT-Transfer Assessment Comments Mobility Comments Pt needing reminders to incorporate back precautions for ADl's and functional mobility with FWW, tends to twist at times due to moving too fast. OT- Balance Assessment Sitting Balance and Reactions Static Sitting Balance Ability Normal Dynamic Sitting Balance Ability Normal Standing Balance and Reactions Static Standing Balance Ability Normal Dynamic Standing Balance Ability Good M8 OT- IP Objective Assessments Start: 02/16/18 13:31 Freq: Status: Active Protocol: Document 02/16/18 13:32 [facility] (Rec: 02/16/18 13:42 [facility] [id number]) OT Gross Range of Motion Upper Extremity Range of Motion Assessment Within Functional Limits OT Strength Upper Extremity Strength Assessment Within Functional Limits M9 OT- IP Assessment and Plan Start: 02/16/18 13:31 Freq: Status: Active Protocol: Document 02/16/18 13:32 [facility] (Rec: 02/16/18 13:42 [facility] [id number]) OT Summary Assessment and Plan Potential Rehabilitation Potential Excellent Analytic Complexity at Evaluation Low Summary OT Impairments Pain Balance Bathing Progress Towards Goals Progressing Toward Goals Assessment Summary Pt low complexity, doing well, has good supportive family and looking to go home tomorrow. Goals Patient/Caregiver Education Goal Demonstrate Post-Op Precautions Caregiver Independent Assisting Patient Days to Meet Goals 1 Frequency of Treatment Frequency Of Treatment Once a Day Treatment Plan OT Treatment Plan Patient/Family Education Discharge Planning Discharge Recommendations OT Discharge Recommendations Home with Assistance Home Equipment Needs shower chair, HHSP, suction cup grab bar
--- NOTE | 2018-02-16 14:28 | PT.IPTN ---
Current Diagnoses Spondylolisthesis, lumbosacral region (02/15/18) Other spondylosis with radiculopathy, lumbar region (02/15/18) Spinal stenosis, lumbar region without neurogenic claudication (02/15/18) Surgery Performed Operation Date: 02/15/18 07:45 Actual Procedures p L3-4 left Hemilaminectomy, L4-5, L5-S1 TLIF w/Posterior Instru. - Ismael Hammonds MD Physical Therapy Treatment Note M2 PT-IP Current Condition Start: 02/15/18 16:21 Freq: NEEDED Status: Active Protocol: Document 02/16/18 14:28 [facility] (Rec: 02/16/18 14:33 [facility] [id number]) Physical Therapy Current Condition Current Condition Evaluation Date 02/15/18 Treatment Diagnosis s/p L4-5, L5-S1 Postero- lateral and posterior interbody fusion Onset Date 02/15/18 Precautions Lumbar Precautions Log Roll No Twisting Limit Bending Lifting Restriction of 10 lbs Other Precautions Stated lifting restriction of 5 lbs. Discussion proper hinging at hips and avoiding any flexion at the spine. Weight Bearing Status Weight Bearing Status Full Weight Bearing M3 PT-IP Subjective Start: 02/15/18 16:21 Freq: NEEDED Status: Active Protocol: Document 02/16/18 14:28 [facility] (Rec: 02/16/18 14:33 [facility] [id number]) Subjective Physical Therapy Visit Type Type Treatment Note Visit Start Time 14:16 Visit Stop Time 14:28 Total Visit Minutes 12 Physical Therapy Visit Comments Patient Comments pt notes pain is much better. Therapy Pain Assessment Pain When Pain Assessed During Mobility Pain Present Pain Present Pain Reported Location Lower Back Intensity 4 Scale Used Numeric (1 - 10) M4 PT-IP Mobility and Gait Start: 02/15/18 16:21 Freq: NEEDED Status: Active Protocol: Document 02/16/18 14:28 [facility] (Rec: 02/16/18 14:33 [facility] [id number]) PT-Bed Mobility Assessment Rolling Type of Rolling Log Rolling Level of Assist Independent Supine to Sit Supine to Sit Independent Sit to Supine Sit to Supine Independent Scooting Scooting to Edge of Bed Independent PT-Transfer Assessment Sit to and From Stand Sit to and from Stand Standby Assistance Equipment Transfer Assistive Device Gait Belt Front Wheeled Walker Transfers Transfer Destination Bed Transfer Technique Stand Step Pivot Transfer Ability Level of Assist Standby Assistance Gait Assessment Gait Gait Assistance Required: Standby Assistance Distance (Feet) 230 Assistive Devices Assistive Device Gait Belt Gait Deviations General Gait Pattern Antalgic Factors Limiting Gait Function Factors Limiting Gait Function Decreased Activity Tolerance Comments Gait Comments FWW and SBA x50 ft, then 180 ft with no AD and SBA. No LOB. Stair Climbing Assessment Evaluation Level of Assist On Stairs Standby Assistance Devices Stair Climbing Assistive Devices Left Railing Technique/Endurance Stair Climbing Direction Ascend and Descend Stair Climbing Technique Step to Step Number of Steps Climbed 3 Query Text: M5 PT-IP Objective Assessments Start: 02/15/18 16:21 Freq: NEEDED Status: Active Protocol: Document 02/16/18 10:45 [facility] (Rec: 02/16/18 11:38 [facility] [id number]) Sensation Assessment Comments Sensation Comments intact light touch Bilateral thighs, pt agrees he can feel it but feels different M6 PT-IP Treatment Start: 02/15/18 16:21 Freq: NEEDED Status: Active Protocol: Document 02/16/18 14:28 [facility] (Rec: 02/16/18 14:33 [facility] [id number]) Physical Therapy Treatment Education Education Provided Precautions Safety M7 PT-IP Assessment and Plan Start: 02/15/18 16:21 Freq: NEEDED Status: Active Protocol: Document 02/16/18 14:28 [facility] (Rec: 02/16/18 14:33 [facility] [id number]) PT Summary Assessment and Plan Summary Progress Towards Goals Safe For Discharge Assessment Summary POD #1. Pt able to manage stairs with SBA and unilateral rail, and ambulated 180 ft with no assistive device. He had no loss of balance with gait, but do recommend he continue to use FWW upon d/c to offload the spine and LEs with mobility. Pt is cleared to d/c at this time when medically stable. Goals Bed Mobility Goal Independent Transfer Goal Independent Gait Goal Independent Other Goals Ability to ascend and descend 2 steps with SPC. Days to Meet Goals 2 Frequency of Treatment Frequency Of Treatment Twice a Day Treatment Plan Other Recommendations and Next Treatment reinforce precautions, gait Focus as tolerated. Recommendations To Nursing Amount of Assist Needed 1 Person Assist Discharge Recommendations PT Discharge Recommendations Home with Assistance Other Discharge Recommendations Home with .
--- NOTE | 2018-02-16 14:33 | PC.NURSE ---
Day Shift- Pt A&OX4, able to make needs known using call light. PRN Vistaril given at 0830 and Tylenol given at 0920 after prn dose frequency changed from Q6hr to Q4hr. Pt very hesitant to take any prn narcotics for pain. Pt has facial grimacing, restlessness, cannot get into a comfortable position in bed or chair. OOB to chair this AM before breakfast with 1PA using FWW, tolerated fair, ambulated in room than sat in chair. After working with PT in AM, approached pain meds again, Scheduled Dexamethasone given and pt willing to try prn Oxycodone. This was given at 1040 for 8/10 low back pain. Upon reassessment, pain 7/10. Then pain decreased to 5/10 which is pt's baseline pain level at home. prn Vistaril given again at 1240 and 2nd dose of prn Oxycodone given at 1410 for 4-5/10 pain. Goal 3-4/10. Ice pack on/off throughout shift. Pt refused foot SCD's and performs ankle pump exercises. Lower back dressing removed per request by ANNETTE Serarto. 2 incisions well approximated with sunday intact, area cleansed with NS, no active bleeding from incisions and coversite applied, pt tolerated well. Dressing to left of incisions removed for saturated gauze, S/S intact, no active bleeding upon cleansing area with NS. Sterile gauze and tegaderm applied.
[2018-02-16 15:40] VITALS: BP 123/74; PULSE 87; RESP 19; TEMP 37.1; O2SAT 96
[2018-02-16] MEDS: SODIUM CHLORIDE 0.9% FLUSH 10 ML IV (20:30)
[2018-02-16 20:47] VITALS: BP 120/68; PULSE 83; RESP 16; TEMP 37.2; O2SAT 95
[2018-02-16 23:40] VITALS: BP 133/71; PULSE 75; RESP 16; TEMP 36.9; O2SAT 95
[2018-02-17] MEDS: ACETAMINOPHEN 325 MG TABLET 650 MG PO (00:39)
[2018-02-17] MEDS: DEXAMETHASONE 4 MG TABLET PO ×2 (01:29→09:01)
[2018-02-17] MEDS: OXYCODONE IR 10 MG TABLET PO ×3 (05:09→11:20)
[2018-02-17 05:10] VITALS: BP 111/73; PULSE 77; RESP 17; TEMP 36.6; O2SAT 96
[2018-02-17 08:00] VITALS: BP 128/54; PULSE 75; RESP 16; O2SAT 97
[2018-02-17] MEDS: SODIUM CHLORIDE 0.9% FLUSH 10 ML IV (08:16)
--- NOTE | 2018-02-17 09:10 | PT.IPTN ---
Current Diagnoses Spondylolisthesis, lumbosacral region (02/15/18) Other spondylosis with radiculopathy, lumbar region (02/15/18) Spinal stenosis, lumbar region without neurogenic claudication (02/15/18) Surgery Performed Operation Date: 02/15/18 07:45 Actual Procedures p L3-4 left Hemilaminectomy, L4-5, L5-S1 TLIF w/Posterior Instru. - Ismael Hammonds MD Physical Therapy Treatment Note M2 PT-IP Current Condition Start: 02/15/18 16:21 Freq: NEEDED Status: Active Protocol: Document 02/17/18 09:10 [facility] (Rec: 02/17/18 09:58 [facility] [id number]) Physical Therapy Current Condition Current Condition Evaluation Date 02/15/18 Treatment Diagnosis s/p L4-5, L5-S1 Postero- lateral and posterior interbody fusion Onset Date 02/15/18 Precautions Lumbar Precautions Log Roll No Twisting Limit Bending Lifting Restriction of 10 lbs Other Precautions Stated lifting restriction of 5 lbs. Discussion proper hinging at hips and avoiding any flexion at the spine. Weight Bearing Status Weight Bearing Status Full Weight Bearing M3 PT-IP Subjective Start: 02/15/18 16:21 Freq: NEEDED Status: Active Protocol: Document 02/17/18 09:10 [facility] (Rec: 02/17/18 09:58 [facility] [id number]) Subjective Physical Therapy Visit Type Type Treatment Note Visit Start Time 09:01 Visit Stop Time 09:10 Total Visit Minutes 9 Number of CERTIFIED OPHTHALMIC TECHNOLOGIST Visits 0 Physical Therapy Visit Comments Patient Comments pt reports very good pain control, wants to go home. His daughter is in the hospital and he would like to visit her in her room with . M4 PT-IP Mobility and Gait Start: 02/15/18 16:21 Freq: NEEDED Status: Active Protocol: Document 02/17/18 09:10 [facility] (Rec: 02/17/18 09:58 [facility] [id number]) Gait Assessment Gait Gait Assistance Required: Independent Distance (Feet) 75 Assistive Devices Assistive Device Gait Belt Gait Deviations General Gait Pattern Within Normal Limits Factors Limiting Gait Function Factors Limiting Gait Function Pain Comments Gait Comments pt able to ambulate 75 ft without AD, no c/o pain and no LOB. He was left in room 205 with his ; daughter in bed in room (admitted). RN notified, both chair in 205 and pt's room in 203 were locked in case pt or spouse needed to sit. Stair Climbing Assessment Evaluation Level of Assist On Stairs Independent Devices Stair Climbing Assistive Devices Left Railing Technique/Endurance Stair Climbing Direction Ascend and Descend Stair Climbing Technique Step to Step Number of Steps Climbed 3 Query Text: PT-Balance Assessment Standing Balance and Reactions Static Standing Balance Ability Good Dynamic Standing Balance Ability Good Device Used none M5 PT-IP Objective Assessments Start: 02/15/18 16:21 Freq: NEEDED Status: Active Protocol: Document 02/16/18 10:45 [facility] (Rec: 02/16/18 11:38 [facility] [id number]) Sensation Assessment Comments Sensation Comments intact light touch Bilateral thighs, pt agrees he can feel it but feels different M6 PT-IP Treatment Start: 02/15/18 16:21 Freq: NEEDED Status: Active Protocol: Document 02/16/18 14:28 [facility] (Rec: 02/16/18 14:33 [facility] [id number]) Physical Therapy Treatment Education Education Provided Precautions Safety M7 PT-IP Assessment and Plan Start: 02/15/18 16:21 Freq: NEEDED Status: Active Protocol: Document 02/17/18 09:10 [facility] (Rec: 02/17/18 09:58 [facility] [id number]) PT Summary Assessment and Plan Summary Progress Towards Goals Safe For Discharge Goals Met Assessment Summary POD #2. Pt able to ambulate without the use of an assistive device, no c/o pain during mobility. Recommend pt still use a FWW initially upon return home to assist with pain management. He is cleared to d/c when medically stable, no further acute PT needs at this time. Frequency of Treatment Frequency Of Treatment Discharge Recommendations To Nursing Amount of Assist Needed Standby Assistance Discharge Recommendations PT Discharge Recommendations Home with Assistance
--- NOTE | 2018-02-17 09:56 | P.DS_ITS ---
History of Present Illness Date Patient Seen: 02/17/18 Time Patient Seen: 09:55 Chief complaint: [id number] Narrative: The patient is a 68-year-old male with a history of chronic back pain and worsening radiculopathy. Patient is now Hospital day 3, postop day 2 following L3-4 hemilaminectomy, L4-5, L5-S1 TLIF with cage and anterior plate by Dr. Hammonds. Patient is remained stable postoperatively. Pain and numbness in the thighs has decreased over the last day since starting the Decadron. His pain is controlled today. The Kunz was removed and he has voided on his own. He has been up and ambulatory around the unit by himself and with physical therapy. The patient is tolerating a p.o. diet and appropriate for discharge home. Discharge Providers Date of admission: 02/15/18 06:13 Primary care physician: Andrew Mason MD Consults: 01/28/18 11:29 Consult to Pastoral Services Routine Comment: TLIF 02/1502/15/18 07:19 Consult to Pastoral Services Routine Comment: pt requests pastoral support 02/15/18 13:35 Consult to Occupational Therapy Evaluate & Treat Comment: Physician Instructions: Evaluate and treat Consult to Physical Therapy Evaluate & Treat Comment: Physician Instructions: Evaluate and Treat 02/15/18 14:16 Consult to Pastoral Services Routine Comment: for support Discharge provider: Iqra Sargent MD Discharge Date: 02/17/18 Summary Discharge Diagnosis: Chronic back pain. Lumbar radiculopathy. Lumbar spondylosis Hospital Course: Patient is a 68-year-old male status post L3-4 hemilaminectomy , L4-5, L5-S1 TLIF with cage and anterior plate by Dr. Hammonds. On 02/15. Patient is remained stable postoperatively. H had some increased numbness on his anterior bilateral thighs on postoperative day 1. Increased pain medication and Decadron were started. This is improved on postop day 2. Patient has worked with physical therapy and has been ambulatory along the [place]arton. He has tolerated p.o. diet. He has been afebrile. Patient's Kunz was removed on postoperative day 2 and the patient has voided successfully. The patient is appropriate for discharge. Status at Discharge Cognitive/behavioral status at discharge: Baseline Functional status at discharge: independent ambulation Overall status at discharge: patient is progressing back to baseline Time Spent with Patient Less than 30 minutes Exam Vital Signs (past 8 hours): - 02/17/18 05:10 02/17/18 08:00 Temperature 97.9 F Pulse Rate 77 75 Respiratory Rate 17 16 Blood Pressure 111/73 128/54 L Pulse Oximetry 96 97 Oxygen Delivery Method Room Air Oxygen Flow Rate 0 Narrative Exam Narrative: Alert, oriented no acute distress resting in bed. Back dressing to lumbar area is dry with some small areas of shadowing. Legs. No calf pain or swelling. Pulses symmetrical. Good sensation to touch to lower legs. Demonstrates Good strength on ankle dorsiflexion plantar flexion. He is able to fire quads bilateral. Actually demonstrates a straight leg raise bilaterally for me today. Endorses increased sensation returning to his anterior thighs bilaterally. Objective Labs Result Diagrams: 02/16/18 06:13 Discharge Plan Discharge Plan Patient Disposition: Home Discharge comment: When transportation arranged Discharge Med Rec/Prescriptions Prescriptions: New docusate sodium 100 mg Capsule 100 mg PO BID Qty: 30 RF: 1 hydroxyzine pamoate 25 mg Capsule 25 mg PO Q4HR PRN (Reason: Nausea And Vomiting) Qty: 20 RF: 1 oxycodone 10 mg Tablet 10 mg PO Q3HR PRN (Reason: Pain, Severe (7-10)) Qty: 50 RF: 0 dexamethasone 2 mg tablet See Label Instructions .ROUTE .COMPLEX Qty: 10 RF: 0 Continue multivitamin [Multiple Vitamins] 1 EACH tablet 1 tab PO BID Qty: 0 RF: 0 Follow up/Referrals: Ismael Hammonds MD [Physician] - (Follow-up as scheduled 10-14 days after surgery for wound check) Provider Discharge Instructions Diet: Diet as Tolerated Activity: Mobilize as tolerated. No bending twisting or lifting Skin/Wound/Dressing Care Report to your healthcare provider any signs of infection, such as:: chills, fever, night sweats, increased pain, unusual drainage and unusual redness Dressing: Keep dressing clean dry and in place Discharge Data Primary Care Provider: Andrew Mason Attending Provider: Ismael Hammonds Admit Date/Time: 02/15/18 06:13 Quality VTE Deep Vein Thrombosis/Pulmonary Embolism Present on Admission: No
--- NOTE | 2018-02-17 10:58 | PC.NURSE ---
Day Shift- Pt A&OX4, stated slept more than the last night. Pain controlled at 2-3/10 aching to lower back. No spasms at this time. Numbness to left thigh resolved, Right thigh has decreased since yesterday. Oxycodone prn given at 0815, plan for another dose prior to discharge. Pt has voided 4X good amount of urine post garcia catheter removal this AM. No BM today, passing flatus. Pt did not want to take scheduled stool softener, Prune juice given. Low back dressing changed per Dr. Sargent. Removed for small amount of sang drainage over the 2 incision sites. Scant sang drainage noted to distal end of left incision. Incisions well approximated with sunday intact, no S/S of infection noted. samll incision to the left has S/S intact, dry blood noted. Area cleansed with NS, Xeroform gauze placed over incisions per confirmation with Dr. Sargent. covered with Coversite, pt tolerated well. Small incision covered with gauze & tegaderm. Pt's id fillinf prescriptions at [facility], pt agrees. Plan for discharge before noon.
[2018-02-17 12:00] VITALS: TEMP 37.1
--- NOTE | 2018-02-17 12:30 | PC.NURSE ---
Reviewed written and verbal discharge instructions from Discharge summary with pt and his Leena at bedside. Questions answered. States feels ready to discharge. No further voiced concerns. Leena will call Dr. Hammonds's office Sunday to schedule a 10-14 day follow up appointment as they only had an appointment set for early March. Pt left with all belongings in no distress via wheelchair with [employer] and his Leena to drive home.
== END 2018-02-17 12:25 | disposition home or self-care (01) | DRG 455 ==
PROVIDERS: Admitting Provider Orthopaedic Surgery Orthopaedic Surgery of the Spine; Family Provider Family Medicine; PCP Family Medicine; Visit Provider Orthopaedic Surgery Orthopaedic Surgery of the Spine
PROC: 0SG00AJ Fusion of Lumbar Vertebral Joint with Interbody Fusion Device, Posterior Approach, Anterior Column, Open Approach (ICD-10-PCS; principal; 2018-02-15 07:45)
DX: M48.061 Spinal stenosis, lumbar region without neurogenic claudication (principal); M43.17 Spondylolisthesis, lumbosacral region; M47.26 Other spondylosis with radiculopathy, lumbar region; M48.07 Spinal stenosis, lumbosacral region
CPT/HCPCS: 36415; 72100; 76001; 85014; 85018; 97116; 97161; 97165; 97530; C1776; C9290; J0131; J0330; J0690; J1100; J1170; J2405; J2704; J3010

== ENCOUNTER 2018-12-23 11:35 | Day surgery (SDC) | payer OTHER, SELFPAY ==
[2018-02-15 14:10] VITALS: BMI 29.5
[2018-12-23] VITALS (7 sets, daily range): BP systolic 94–133; BP diastolic 69–83; PULSE 77–86; RESP 11–16; TEMP 36.1–37; O2SAT 94–99; BMI 25.7
[2018-12-23] MEDS: SODIUM CHLORIDE 0.9% 1,000 ML 200 ML IV (12:04)
--- NOTE | 2018-12-23 12:35 | PM.HP.1 ---
History of Present Illness History of Present Illness Date Patient Seen: 12/23/18 Time Patient Seen: 12:35 Chief complaint: [id number] Narrative: 68-year-old white male asymptomatic no melena no hematochezia no pain has had 2 prior colonoscopies. Patient understands purpose for screening colonoscopy and agrees to this procedure today. He is unsure as to whether is had a previous polypectomy Patient History Medical History Arthritis (Acute) Back pain (Acute) Elevated cholesterol (Acute) Malignant melanoma (Acute ~1997) Migraines (Acute) Nerve pain due to spinal stenosis (Acute) Numbness (Acute) Osteoarthritis (Acute) RLS (restless legs syndrome) (Acute) Spinal stenosis (Acute) Spondylolisthesis at L5-S1 level (Acute) Surgical History H/O vasectomy (Acute) Hx of detached retina repair (Acute) Hx of hernia repair (Acute) Hx of tonsillectomy (Acute) Status post cataract extraction of both eyes with insertion of intraocular lens (Acute) Status post knee surgery Social History household members: spouse Smoking Status: Current every day smoker alcohol intake: current Family & Social History Social History: household members spouse Tobacco & Substance use: Smoking Status Current every day smoker alcohol intake current alcohol intake frequency a few times a month Substance Use Type does not use Meds Home Medications and Allergies Home Medications Medication Instructions Recorded Confirmed Type multivitamin [Multiple Vitamins] 1 tab PO BID #0 05/15/17 02/15/18 History dexamethasone See Rx Instructions .ROUTE 02/17/18 Rx .COMPLEX #10 tab docusate sodium 100 mg PO BID #30 cap 02/17/18 Rx hydroxyzine pamoate 25 mg PO Q4HR PRN #20 cap 02/17/18 Rx oxycodone 10 mg PO Q3HR PRN #50 tab 02/17/18 Rx Allergies Allergy/AdvReac Type Severity Reaction Status Date / Time No Known Drug Allergies Allergy Verified 01/28/18 11:04 Review of Systems Review of Systems ROS Unobtainable: All systems reviewed & are unremarkable except as noted in HPI and below Exam Vital Signs (past 8 hours): - 12/23/18 12:05 Temperature 97.4 F L Pulse Rate 86 Respiratory Rate 14 Blood Pressure 133/83 Pulse Oximetry 99 Oxygen Delivery Method Room Air Narrative Exam Narrative: Patient is alert and oriented with no complaints lungs are clear with no rales or wheezes heart regular rhythm no murmur. Abdomen soft no organomegaly no tenderness. Rectal will be done at the time of colonoscopy. Assessment & Plan Assessment & Plan narrative: Patient is here for repeat screening colonoscopy. He is asymptomatic. He understands the nature of procedure and agrees and has no further questions.
[2018-12-23] MEDS: MIDAZOLAM 5 MG/5 ML VIAL IV (13:06)
[2018-12-23] MEDS: fentaNYL 250 MCG/5 ML INJ IV (13:07)
--- NOTE | 2018-12-23 13:07 | PM.OP.ENDO ---
Operative Date/Time/Diagnoses Date of procedure: 12/23/18 Time of procedure: 13:08 Pre-op diagnosis: Screening colonoscopy Post-op diagnosis: same Procedure & Clinicians Study performed: Total colonoscopy to the cecum Same procedure as scheduled: Yes Surgeon: Karan Brito Procedure Notes SCOAP/Timeout: Was done Procedure in detail: The patient was properly identified during surgical pause the flexible fiberoptic colonoscope inserted transanally to the cecum a total of 6 mg of Versed and 250 micro g of fentanyl were administered throughout the procedure and the patient remained comfortable. Patient has minimal sigmoid diverticulosis otherwise there are no abnormalities encountered. There are no polyps no tumors no ulcerations no bleeding. Procedures very well tolerated. Scope withdrawal time: 10 Sedation minutes: 20 Findings: diverticulosis Specimen(s): none sent Complications: none Post-procedure Recommendations: Colonscopy in 10 years
== END 2018-12-23 13:45 | disposition home or self-care (01) ==
PROVIDERS: PCP Family Medicine; Visit Provider Surgery
PROC: 0DJD8ZZ Inspection of Lower Intestinal Tract, Via Natural or Artificial Opening Endoscopic (ICD-10-PCS; CPT 45378; principal; 2018-12-23 13:00)
DX: Z12.11 Encounter for screening for malignant neoplasm of colon (principal); K57.30 Diverticulosis of large intestine without perforation or abscess without bleeding
CPT/HCPCS: 45378; 99152; J2250; J3010

== ENCOUNTER → 2019-01-22 09:42 | Outpatient (CLI) | payer OTHER, SELFPAY ==
[2018-02-15 14:10] VITALS: BMI 29.5
--- NOTE | 2019-01-22 | DI.US.S_ITS ---
PROCEDURE: US ABDOMEN LIMITED INDICATIONS: BILATERAL LOWER ABDOMINAL MASSES TECHNIQUE: Real-time focused scanning was performed of the lower abdomen, with image documentation. COMPARISON: None. FINDINGS: Within the right lower abdomen corresponding to the palpable abnormality there is a 2.7 x 2.6 x 0.8 cm isoechoic avascular subcutaneous soft tissue mass. Within the left lower abdomen corresponding to the palpable abnormality there is a 1.5 x 0.9 x 0.6 cm isoechoic subcutaneous avascular soft tissue mass. IMPRESSION: Lower abdominal subcutaneous soft tissue masses corresponding to the palpable abnormalities suggestive of lipomas. However, the findings are nonspecific and the differential includes inflammatory processes as well as other fat-containing mass lesions such as atypical lipomatous tumors or low grade liposarcoma. Recommend clinical correlation and followup. If indicated, soft tissue MRI could be performed; otherwise continued sonographic surveillance may be performed to demonstrate stability. Dictated by: Alexander DAVIS Interpreted: Billy Reyes MD on 01/22/2019 at 10:32 Approved by: Billy Reyes M.D. on 01/22/2019 at 15:41
== END ==
PROVIDERS: PCP Family Medicine; Visit Provider Family Medicine
DX: R19.04 Left lower quadrant abdominal swelling, mass and lump (principal); R19.03 Right lower quadrant abdominal swelling, mass and lump
CPT/HCPCS: 76705

== ENCOUNTER → 2020-08-03 11:09 | Outpatient (CLI) | payer OTHER, SELFPAY ==
[2018-02-15 14:10] VITALS: BMI 29.5
--- NOTE | 2020-08-03 | DI.RAD.S_ITS ---
PROCEDURE: XR CHEST 2V INDICATIONS: Melanoma in situ of scalp and neck TECHNIQUE: 2 views of the chest were acquired. COMPARISON: [facility], , CHEST 2 VIEW, 05/16/2017, 7:49. FINDINGS: Surgical changes and devices: None. Lungs and pleura: Lungs are clear. No pleural effusions or pneumothorax. Mediastinum: Mediastinal contours are normal. Heart size is normal. Bones and chest wall: No suspicious bony abnormalities. Soft tissues appear unremarkable. IMPRESSION: No acute cardiopulmonary disease. Dictated by: Adrian Sarkar M.D. on 08/03/2020 at 12:23 Approved by: Adrian Sarkar M.D. on 08/03/2020 at 12:24
== END ==
PROVIDERS: PCP Family Medicine; Referring Provider Obstetrics & Gynecology; Visit Provider Obstetrics & Gynecology
DX: D03.4 Melanoma in situ of scalp and neck (principal)
CPT/HCPCS: 71046

== ENCOUNTER → 2020-10-07 09:18 | Outpatient (CLI) | payer OTHER, SELFPAY ==
[2018-02-15 14:10] VITALS: BMI 29.5
--- NOTE | 2020-10-07 | DI.RAD.S_ITS ---
PROCEDURE: XR HAND RT MIN 3V INDICATIONS: Pain in joints of unspecified hand TECHNIQUE: 3 views of the hand(s) acquired. COMPARISON: None. FINDINGS: Bones: No fractures or dislocations. Carpal bones are normally aligned. Subcortical radiolucencies involving proximal carpal bones, ulnar styloid tip, 1st through 3rd metacarpal heads, and adjacent to 1st interphalangeal joint, 3rd through 5th PIP joints and 2nd through 5th DIP joints are seen. Soft tissues: No suspicious soft tissue calcifications. IMPRESSION: Radiolucency scattered in carpal bones and adjacent to MCP joints and interphalangeal joints as above concerning for erosion secondary to inflammatory arthropathy. Dictated by: Car Goldstein M.D. on 10/12/2020 at 19:30 Approved by: Car Goldstein M.D. on 10/12/2020 at 19:31
--- NOTE | 2020-10-07 | DI.RAD.S_ITS ---
PROCEDURE: XR WRIST LT MIN 3V INDICATIONS: Pain in joints of unspecified hand TECHNIQUE: 3 views of the wrist were acquired. COMPARISON: None. FINDINGS: Bones: No fractures or dislocations. No suspicious bony lesions. [id number] degenerative joint disease involving the triscaphe joint, 1st carpometacarpal joint and the 1st metacarpophalangeal joint. Cystic changes are seen in ulnar styloid, distal pole of the scaphoid, the base and the head of the 1st metacarpal, the 2nd and 3rd metacarpal heads. Soft tissues: No suspicious soft tissue calcifications. IMPRESSION: 1. [id number] degenerative joint disease. 2. Cyst formation in ulnar styloid, scaphoid, the base and the head of the 1st metacarpal, and the head of the 2nd and 3rd metacarpals, most likely geodes. Dictated by: Adrian Sarkar M.D. on 10/07/2020 at 14:52 Approved by: Adrian Sarkar M.D. on 10/07/2020 at 14:56
--- NOTE | 2020-10-07 | DI.RAD.S_ITS ---
PROCEDURE: XR HAND LT MIN 3V INDICATIONS: Pain in joints of unspecified hand TECHNIQUE: 3 views of the hand(s) acquired. COMPARISON: None. FINDINGS: Bones: No fractures or dislocations. Carpal bones are normally aligned. Subcortical lucencies involving 1st through 3rd metacarpal heads, and adjacent to 2nd through 5th PIP joints and 2nd and 3rd DIP joints are seen. Soft tissues: No suspicious soft tissue calcifications. IMPRESSION: Subtle radiolucencies scattered in MCP joints and interphalangeal joints of left hand as described above concerning for erosion secondary to inflammatory arthropathy. No fracture or dislocation. Dictated by: Car Goldstein M.D. on 10/12/2020 at 19:28 Approved by: Car Goldstein M.D. on 10/12/2020 at 19:30
--- NOTE | 2020-10-07 | DI.RAD.S_ITS ---
PROCEDURE: XR WRIST RT MIN 3V INDICATIONS: Pain in joints of unspecified hand TECHNIQUE: 3 views of the wrist were acquired. COMPARISON: [facility], CR, XR WRIST LT MIN 3V, 10/07/2020, 9:20. FINDINGS: Bones: No fractures or dislocations. There are lucencies in the ulnar styloid, distal pole of scaphoid, lunate, triquetrum, the 2nd and 3rd metacarpal heads, most likely secondary to intra osseous cysts or geodes. Mild triscaphe joint and 1st carpometacarpal joint degeneration. Soft tissues: No suspicious soft tissue calcifications. IMPRESSION: 1. No acute osseous abnormalities. 2. Mild degenerative joint disease at the triscaphe joint and the 1st carpometacarpal joint. 3. Multiple intra osseous lucencies involving the ulnar styloid, the distal pole of scaphoid, lunate, triquetrum and the 2nd and 3rd metacarpal heads, most likely secondary to intraosseous cyst formation or geodes. Dictated by: Adrian Sarkar M.D. on 10/07/2020 at 14:45 Approved by: Adrian Sarkar M.D. on 10/07/2020 at 14:52
== END ==
PROVIDERS: PCP Family Medicine; Referring Provider Obstetrics & Gynecology; Visit Provider Obstetrics & Gynecology
DX: M25.549 Pain in joints of unspecified hand (principal); M18.0 Bilateral primary osteoarthritis of first carpometacarpal joints; M19.032 Primary osteoarthritis, left wrist; M19.031 Primary osteoarthritis, right wrist; M19.042 Primary osteoarthritis, left hand
CPT/HCPCS: 73110; 73130

== ENCOUNTER → 2020-10-18 09:45 | Outpatient (CLI) | payer OTHER, SELFPAY ==
[2018-02-15 14:10] VITALS: BMI 29.5
[2020-10-18 11:22] LABS: Add Manual Diff / Slide Review NO; Basophils Absolute Auto 100 /uL (0-100); Basophils Percent Auto 1.1 % (0-2); Eosinophils Absolute Auto 100 /uL (0-450); Eosinophils Percent Auto 2.1 % (2-4); Hematocrit 41.7 % (41-53); Hemoglobin 13.8 g/dL (13.5-17.5); Lymphocytes Absolute Auto 900 /uL (1100-4500); Lymphocytes Percent Auto 13.6 % (25-40); Mean Corpuscular Hemoglobin 32.1 PG (26-34); Mean Corpuscular Volume 97.2 fL (80-100); Monocytes Absolute Auto 500 /uL (0-900); Monocytes Percent Auto 8.5 % (3-14); Neutrophils Absolute Auto 4800 /uL (1500-7000); Neutrophils Percent Auto 74.7 % (50-75); Platelet Count 291 X10^3/uL (150-400); Red Cell Distribution Width 14.5 % (11.6-14.8); White Blood Cell Count 6.4 X10^3/uL (4.5-11.0)
[2020-10-18 12:05] LABS: Erythrocyte Sedimentation Rate 6 MM/HR (0-15)
[2020-10-18 13:32] LABS: Alanine Aminotransferase 14 IU/L (<50); Albumin Globulin Ratio 1.5 (1.0-2.8); Alkaline Phosphatase 48 U/L (38-126); Aspartate Aminotransferase 19 IU/L (17-59); BUN Creatinine Ratio 23.1 (6-22); Bilirubin Total 0.4 mg/dL (0.2-1.3); Blood Urea Nitrogen 18 mg/dL (9-20); Calcium 9.4 mg/dL (8.4-10.2); Carbon Dioxide 29 mmol/L (22-32); Chloride 103 mmol/L (98-107); Estimated Glomerular Filt Rate > 60.0 mL/min (>60); Globulin 2.6 g/dL (1.7-4.1); Glucose 92 mg/dL (80-110); HEMOLYSIS < 15 (0-50); Potassium 4.5 mmol/L (3.4-5.1); Sodium 138 mmol/L (137-145); Total Protein 6.6 g/dL (6.3-8.2)
[2020-10-18 14:02] LABS: Prostate Specific Antigen 0.969 ng/mL (0.10-4.00)
== END ==
PROVIDERS: PCP Family Medicine; Referring Provider Obstetrics & Gynecology; Visit Provider Obstetrics & Gynecology
DX: R19.7 Diarrhea, unspecified (principal)
CPT/HCPCS: 36415; 80053; 84153; 85025; 85651

== ENCOUNTER 2021-06-29 13:05 | Emergency (ER) | payer MEDICARE, OTHER, SELFPAY ==
[2018-02-15 14:10] VITALS: BMI 29.5
[2021-06-29 13:08] VITALS: BP 144/77; PULSE 78; RESP 20; TEMP 36.4; O2SAT 99
--- NOTE | 2021-06-29 13:11 | DI.RAD.S_ITS ---
PROCEDURE: XR RIBS RT MIN 3V W CXR 1V INDICATIONS: fall TECHNIQUE: 2 views of the right ribs were acquired, along with a single view chest. COMPARISON: [facility], CR, XR CHEST 2V, 08/03/2020, 11:11. FINDINGS: Surgical changes and devices: Lumbar spine hardware. Bones and chest wall: No fractures or dislocations. No suspicious bony lesions. Overlying soft tissues appear unremarkable. Lungs and pleura: No pleural effusions or pneumothorax. Lungs appear clear. Mediastinum: Mediastinal contours appear normal. Heart size is normal. IMPRESSION: No acute cardiopulmonary abnormality. No displaced right rib fracture. Dictated by: Abelardo Patterson M.D. on 06/29/2021 at 14:37 Approved by: Abelardo Patterson M.D. on 06/29/2021 at 14:38
[2021-06-29 15:00] VITALS: BP 147/81; PULSE 64; RESP 18; O2SAT 99
--- NOTE | 2021-06-29 15:01 | ED_ITS ---
HPI - Back Pain/Injury <CHATO Morin - Last Filed: 06/29/21 19:26> General Chief Complaint: Back Pain/Injury Stated Complaint: fell on back - trouble breathing Time Seen by Provider: 06/29/21 14:54 Source: patient History of Present Illness HPI Narrative: This is a 71-year-old male who presents to the emergency department stating that he fell onto his right side 3 days ago injuring his right ribs. He has seen his chiropractor, chiropractor thought patient possibly separate rib. He denies any shortness of breath, difficulty breathing, chest pain, or cough. He has an upcoming appointment with his primary care provider in 1 week. He states that status most of his pain is in his back, posterior and midline with his scapula, in his thoracic region. Patient does not have any open wound, states that going to sleep is difficult because it is painful when he lays down. Related Data Home Medications Medication Instructions Recorded Confirmed multivitamin (Multiple Vitamins) 1 tab PO BID #0 05/15/17 02/15/18 Previous Rx's Medication Instructions Recorded dexamethasone 2 mg tablet See Rx Instructions .ROUTE 02/17/18 .COMPLEX #10 tab docusate sodium 100 mg capsule 100 mg PO BID #30 cap 02/17/18 hydroxyzine pamoate 25 mg capsule 25 mg PO Q4HR PRN #20 cap 02/17/18 oxycodone 10 mg tablet 10 mg PO Q3HR PRN #50 tab 02/17/18 diclofenac sodium 1 % topical gel 2 g TOPICAL QID PRN #100 g 06/29/21 (Voltaren Arthritis Pain) lidocaine 5 % topical patch 1 patch TOPICAL DAILY PRN #15 ea 06/29/21 methocarbamol 500 mg tablet 500 mg PO Q8H PRN #20 tab 06/29/21 tramadol 50 mg tablet 50 mg PO BID PRN #14 tab 06/29/21 Allergies Allergy/AdvReac Type Severity Reaction Status Date / Time No Known Drug Allergies Allergy Verified 01/28/18 11:04 Review of Systems <CHATO Morin - Last Filed: 06/29/21 19:26> Review of Systems Narrative: General: denies fever, chills, malaise, sweats, fatigue Head/Neck: denies headache, neck pain, dizziness Eyes: denies visual changes, eye pain Cardio: denies chest pain, palpitations, edema Respiratory: denies dyspnea, cough, orthopnea GI: denies abdominal pain, nausea, vomiting, or diarrhea : denies dysuria, hematuria, urinary retention, frequency or incontinence MSK: Endorses left rib pain and tenderness to palpation, denies any muscle weakness Skin: denies rash, itching, skin lesions or other Neuro: denies numbness, tingling Patient History <CHATO Morin - Last Filed: 06/29/21 19:26> Medical History Arthritis Back pain Elevated cholesterol Malignant melanoma (~1997) Migraines Nerve pain due to spinal stenosis Numbness Osteoarthritis RLS (restless legs syndrome) Spinal stenosis Spondylolisthesis at L5-S1 level Surgical History H/O vasectomy Hx of detached retina repair Hx of hernia repair Hx of tonsillectomy Status post cataract extraction of both eyes with insertion of intraocular lens Status post knee surgery Social History household members: spouse Smoking Status: Current every day smoker alcohol intake: current Smoking Status: Current every day smoker alcohol intake frequency: a few times a month Substance Use Type: does not use Exam <CHATO Morin - Last Filed: 06/29/21 19:26> Narrative Exam Narrative: Independently reviewed vitals signs and nursing notes. General: cooperative, comfortable, in no acute distress, well developed and well groomed Head: atraumatic, symmetrical facial expressions Neck: supple, atraumatic, without lymphadenopathy. Eyes: pupils equal round and reactive, EOMI, conjunctiva normal Nose: nares patent, no rhinorrhea Mouth/Throat: uvula midline, moist mucus membranes Cardiovascular: regular rate and rhythm, no peripheral edema, warm extremities Respiratory: normal effort, able to speak in complete sentences, no audible wheezing, stridor, or rales. No retractions or tachypnea, equal excursions bilaterally, patient has palpable contusion posterior ribs approximately number 7 or 8, no crepitus, bony abnormality palpable, or obvious changes to his rib space. No surrounding ecchymosis, open wound, erythema, or other. GI: abdomen soft, nontender to palpation, nondistended, no masses, no exquisite tenderness with exam, without guarding or rebound. MSK: moves all extremities, ambulatory w/steady gait, neurovascularly intact, no weakness, no tenderness to hips, pelvis, sternum, bilateral chest, shoulders with palpation. Skin: brisk capillary refill, no rash, no erythema Neuro: normal speech and cognition, A&O x3, normal tone Psych: mental status is grossly normal, congruent mood, normal affect, pleasant and cooperative Initial Vital Signs Initial Vital Signs: Vital Signs Temperature 97.6 F 06/29/21 13:08 Pulse Rate 78 06/29/21 13:08 Respiratory Rate 20 06/29/21 13:08 Blood Pressure 144/77 H 06/29/21 13:08 Pulse Oximetry 99 06/29/21 13:08 <Ashley Mathews DO - Last Filed: 06/30/21 08:05> Initial Vital Signs Initial Vital Signs: Vital Signs Temperature 97.6 F 06/29/21 13:08 Pulse Rate 78 06/29/21 13:08 Respiratory Rate 20 06/29/21 13:08 Blood Pressure 144/77 H 06/29/21 13:08 Pulse Oximetry 99 06/29/21 13:08 Course <CHATO Morin - Last Filed: 06/29/21 19:26> Orders Ordered: Discontinued Medications Lidocaine (Lidocaine Patch 1 Each Adh..Patch) 1 each TOP NOW ONE Stop: 06/29/21 15:02 Last Admin: 06/29/21 15:13 Dose: 1 each Documented by: JAEL Tramadol HCl (Tramadol 50 Mg Tablet) 50 mg PO NOW ONE Stop: 06/29/21 15:02 Last Admin: 06/29/21 15:12 Dose: 50 mg Documented by: JAEL Vital Signs Vital signs: Vital Signs - 8 hr 06/29/21 13:08 06/29/21 15:00 Temperature 97.6 F Pulse Rate 78 64 Respiratory Rate 20 18 Blood Pressure 144/77 H 147/81 H Pulse Oximetry 99 99 <Ashley Mathews DO - Last Filed: 06/30/21 08:05> Orders Ordered: Discontinued Medications Lidocaine (Lidocaine Patch 1 Each Adh..Patch) 1 each TOP NOW ONE Stop: 06/29/21 15:02 Last Admin: 06/29/21 15:13 Dose: 1 each Documented by: JAEL Tramadol HCl (Tramadol 50 Mg Tablet) 50 mg PO NOW ONE Stop: 06/29/21 15:02 Last Admin: 06/29/21 15:12 Dose: 50 mg Documented by: JAEL Vital Signs Vital signs: Vital Signs - 8 hr 06/29/21 13:08 06/29/21 15:00 Temperature 97.6 F Pulse Rate 78 64 Respiratory Rate 20 18 Blood Pressure 144/77 H 147/81 H Pulse Oximetry 99 99 MDM - Back Pain/Injury <Komal Mae, [facility] - Last Filed: 06/29/21 19:26> Imaging Data rib xray: Radiologist's Impression: PROCEDURE:? XR RIBS RT MIN 3V W CXR 1V ? INDICATIONS:? fall ? TECHNIQUE:? 2 views of the right ribs were acquired, along with a single view chest.? ? COMPARISON:? [facility], , XR CHEST 2V, 08/03/2020, 11:11. ? FINDINGS:? ? Surgical changes and devices:? Lumbar spine hardware.? ? Bones and chest wall:? No fractures or dislocations.? No suspicious bony lesions.? Overlying soft tissues appear unremarkable.? ? Lungs and pleura:? No pleural effusions or pneumothorax.? Lungs appear clear.? ? Mediastinum:? Mediastinal contours appear normal.? Heart size is normal.? ? IMPRESSION:? No acute cardiopulmonary abnormality. No displaced right rib fracture. ? ? Dictated by: Abelardo Patterson M.D. on 06/29/2021 at 14:37 ? ? Approved by: Abelardo Patterson M.D. on 06/29/2021 at 14:38 ? MDM Narrative Medical decision making narrative: This is a pleasant 71-year-old male who presents to the emergency department after he had a fall 2 days ago onto his left thoracic region now with pain. X- ray was negative for acute fracture, rib dislocation, or pneumothorax. Physical exam does not have any crepitus, abnormal breath sounds, he does have a small area of tenderness that is likely a contusion on his posterior left ribs mid scapular line. Patient was given a lidocaine patch in the emergency department, tramadol, methocarbamol and a prescription of topical diclofenac gel Recommend supportive therapies for the next week and following up with his PCP if ongoing beyond that. Patient understands to follow-up with his PCP if not improving, understands to return to the emergency department for any shortness of breath, wheezing, chest pain, worsening symptoms. Patient is appropriate and amenable to discharge home. Vital signs are stable on repeat examination is unremarkable. Patient has been informed of results. Patient has been given strict return to ER precautions for any new or worsening symptoms. Patient understands to follow up closely with outpatient providers as instructed. Patient understands plan and agrees to discharge home. All questions and concerns answered at this time. Discharge Plan Departure Patient Disposition: Home Clinical Impression: Costochondral pain Instructions: DI for Costochondritis, DI for Rib Contusion Activity Restrictions/Additional Instructions: *You have been diagnosed with a rib injury on the right, likely the cartilage or soft tissue. The x-ray did not show any fracture. Please use the medications as prescribed for your pain, you may use lidocaine patches as needed, apply the Voltaren gel, use heat, ice, whichever works best for your pain. Please follow- up at your appointment on Sunday and ask for a referral to physical therapy. Please return to the emergency department if you have any worsening of your symptoms. Thank you for trusting us with your care, you feel better soon. CONTROLLED SUBSTANCE DISCHARGE (Narcotic/benzodiazepine/Flexeril/Phenergan) 1. You have been prescribed narcotic medications, it does have acetaminophen/Tylenol/paracetamol in it, DO NOT TAKE MORE THAN 4,00mg in 24 hours of Tylenol. *Tramadol does not contain tylenol. 2. Please understand that we cannot provide further refills of narcotics, benzodiazepines or controlled substances through the ED and her pain management will need to be through your provider. 3. While on these medications you cannot drive or operate heavy machinery. 4. You cannot sign legal documents or perform any duties such as this. 5. As long as you are taking opiate pain medications he should also be taking a stool softener such as Colace, Dulcolax, MiraLAX or prune juice, to help avoid constipation. *What to do: *Please continue to take your regular medications as directed. [ x] New medication prescriptions sent to your pharmacy: [[facility] ] [ ] New medication written as a paper prescription [ ] No new medications given *Please follow up with your primary care provider in 2-3 days, call for an appointment. Let them know you were seen in the Emergency Department and that we asked that you be seen for follow-up. We will electronically transmit a record of today's note if your PCP is in our system *If you do not have a primary care provider please contact [phone] to establish care with one of the [facility] primary care providers. *Return to Emergency Department if you should have any new, worsening or concerning symptoms, such as [fever greater than 101F, chills, worsening pain, persistent vomiting or other bothersome symptoms] Prescriptions: New methocarbamol 500 mg tablet 500 mg PO Q8H PRN (Reason: muscle spasm) Qty: 20 0RF lidocaine 5 % adhesive patch,medicated 1 patch topical DAILY PRN (Reason: pain) Qty: 15 0RF Rx Instructions: leave on most painful area for up to 12 hrs diclofenac sodium [Voltaren Arthritis Pain] 1 % gel 2 g topical QID PRN (Reason: pain) Qty: 100 0RF Rx Instructions: apply to single elbow, wrist or hand; for hand includes palm/fingers/back of hand tramadol 50 mg tablet 50 mg PO BID PRN (Reason: pain) Qty: 14 0RF No Action multivitamin [Multiple Vitamins] 1 EACH tablet 1 tab PO BID Qty: 0 0RF docusate sodium 100 mg Capsule 100 mg PO BID Qty: 30 1RF hydroxyzine pamoate 25 mg Capsule 25 mg PO Q4HR PRN (Reason: Nausea And Vomiting) Qty: 20 1RF oxycodone 10 mg Tablet 10 mg PO Q3HR PRN (Reason: Pain, Severe (7-10)) Qty: 50 0RF dexamethasone 2 mg tablet See Rx Instructions .ROUTE .COMPLEX Qty: 10 0RF Rx Instructions: 2 mg orally take 2 tabs PO BID x 1 days, then take 2mg ( 1 tab) PO BID x 2 days, then take 2mg 1 tab) PO once daily x 2 days Referrals: Africa Flores DO [Primary Care Provider] - <Ashley Mathews DO - Last Filed: 06/30/21 08:05> [facility] Attestation: I was immediately available in the department for consultation. Documentation has been reviewed. I agree with assessment and plan.
[2021-06-29] MEDS: TRAMADOL 50 MG TABLET PO (15:12)
[2021-06-29] MEDS: LIDOCAINE PATCH 1 EACH ADH..PATCH TOP (15:13)
== END 2021-06-29 15:18 | disposition home or self-care (01) ==
PROVIDERS: Emergency Provider Nurse Practitioner Critical Care Medicine; PCP Obstetrics & Gynecology
DX: R07.81 Pleurodynia (principal)
CPT/HCPCS: 71101; 99283; 99284

== ENCOUNTER → 2022-07-27 12:13 | Outpatient (CLI) | payer MEDICARE, OTHER, SELFPAY ==
[2018-02-15 14:10] VITALS: BMI 29.5
--- NOTE | 2022-07-27 | DI.MRI.S_ITS ---
PROCEDURE: MR KNEE LT WO CON INDICATIONS: Unspecified internal derangement of left knee.. TECHNIQUE: Noncontrast sagittal PD fast spin echo and T2 fast spin echo with fat saturation, sagittal 3-D FLASH with fat saturation; coronal T1 spin echo and PD fast spin echo with fat saturation, and axial PD fast spin echo with fat saturation through the knee. COMPARISON: [facility], MR, KNEE WITHOUT CONTRAST, 07/03/2014, 19:52. FINDINGS: Image quality: Excellent. Menisci: There is amorphous and linear oblique high T2 signal intensity within the inner, middle, and peripheral thirds of the anterior horn, body, and posterior horn medial meniscus, demonstrating inferior articular surface extension, indicating complex tearing. Discoid lateral meniscus is present without tear. Cruciate ligaments: The anterior and posterior cruciate ligaments appear intact. Medial structures: The medial collateral ligament appears intact. Visualized portions of the pes anserinus tendons appear normal. No abnormal bursal fluid. Lateral structures: The lateral collateral ligament, long and short heads of the biceps femoris tendon appear intact. The popliteus tendon appears normal. Iliotibial band appears normal. Anterior structures: The quadriceps and patellar tendons appear intact. Patellar alignment is normal. No femoral trochlear dysplasia or ventral trochlear prominence. No edema in the infrapatellar fat pad. Bones and cartilage: No bone marrow contusions or fractures. Moderate subchondral degenerative marrow edema within the patellar apex and lateral patellar facet. Mild subchondral degenerative marrow edema within the anterior weight-bearing aspect of the medial tibial plateau. Mild tricompartmental periarticular osteophyte formation. Severe articular cartilage loss diffusely overlies the weight-bearing aspects of the medial femoral condyle and medial tibial plateau. Severe articular cartilage loss overlies the lateral patellar facet. Joint space: There is a moderate knee joint effusion.. No Sharma's cyst. Normal appearing synovial plicae are incidentally noted. IMPRESSION: 1. Complex tearing of the medial meniscus. 2. Discoid lateral meniscus without tear. 3. Knee joint effusion. 4. Tricompartmental osteoarthritis with associated articular cartilage loss. Dictated by: Gloria Arias M.D. on 07/27/2022 at 16:42 Approved by: Gloria Arias M.D. on 07/27/2022 at 16:44
== END ==
PROVIDERS: PCP Obstetrics & Gynecology; Referring Provider Orthopaedic Surgery Foot and Ankle Surgery; Visit Provider Orthopaedic Surgery Foot and Ankle Surgery
DX: M23.92 Unspecified internal derangement of left knee (principal); S83.232A Complex tear of medial meniscus, current injury, left knee, initial encounter; M23.301 Other meniscus derangements, unspecified lateral meniscus, left knee; M17.12 Unilateral primary osteoarthritis, left knee; M25.462 Effusion, left knee
CPT/HCPCS: 73721

== ENCOUNTER 2022-10-17 12:45 | Day surgery (SDC) | payer MEDICARE, OTHER, SELFPAY ==
[2018-02-15 14:10] VITALS: BMI 29.5
[2022-10-12 14:37] VITALS: BMI 25.4
--- NOTE | 2022-10-17 | PATH_ITS ---
[facility] Accession Number: [id number] No. of containers..01 Tissue . 01 Material submitted: . body - MULTIPLE TORSAL LIPOMAS . 01 Diagnosis: Soft Tissue, Torso, Excision: Benign lipomas. MRV 10/23/2022 1916 Local . 01 Electronically signed: . Carmen Johnson MD, Pathologist NPI- [id number] . 01 Gross description: . The specimen is received in formalin labeled with the patient's name, , and multiple torso lipomas, and consists of multiple yellow lobulated soft tissue fragments ranging from 1.7 x 0.6 x 0.6 cm to 3.4 x 2.6 x 0.9 cm. The external surfaces are differentially inked. Sectioning reveals yellow, unremarkable, homogenous cut surface. Nutrition Counselor sections are submitted in cassettes A1-A3. ([id number]) /FRKedar 10/21/20222020 Local . 01 Pathologist provided ICD-10: D17.9 . 01 CPT . 693583 Specimen Comment: A courtesy copy of this report has been sent to [phone] Performed at: 01 [facility] [address] [place] [address] [address], [place], [place] [id number] MD Billy Harman MD Phone: [phone]
[2022-10-17] MEDS: LACTATED RINGERS 1,000 ML 100 ML IV (13:11)
[2022-10-17 13:25] VITALS: BP 132/79; PULSE 69; RESP 18; TEMP 36.6; O2SAT 98; BMI 25.4
--- NOTE | 2022-10-17 14:31 | PM.PREOP ---
Pre-operative Note COVID-19 COVID-19 status: Not tested Interval Note History & Physical reviewed/Exam performed by Physician: Yes Changes to H&P: No ASA Class (for procedural sedation): II
--- NOTE | 2022-10-17 14:54 | SUR.OPER ---
Supine on padded OR bed, head on pillow, arms secured on padded arm boards at <90 degrees abduction, legs uncrossed, safety belt at thigh, tape over blanket over lower legs.
[2022-10-17] MEDS: BUPIVACAINE 0.5% (PF) 10 ML VIAL 30 ML INJ (14:57)
--- NOTE | 2022-10-17 15:33 | P.OP_ITS ---
Operative Date/Time/Diagnoses Date of procedure: 10/17/22 Time of procedure: 15:33 Pre-op diagnosis: Multiple torso soft tissue masses Post-op diagnosis: same Procedure & Clinicians Procedure: Excisional biopsy of multiple torso soft tissue masses Same procedure as scheduled: Yes Surgeon: Alex Ceja Plumbing Contractor: El Phillips Operative Notes Procedure in detail: For soft tissue masses of the torso were marked in the preoperative area including the right groin, right upper abdominal wall right lower chest wall and left lower chest wall. Patient was brought to the operating room and placed on the table in the supine position with the arms abducted. The skin was prepped and draped around the for marked areas. We started with the right groin. Marcaine was injected into the skin and dermis and a 5 mm incision was made. A 5 cm x 4 cm x 3 cm fatty mass w as dissected free from the surrounding tissue. Cautery was used for hemostasis. The wound was closed in layers using multiple interrupted 3-0 Vicryl dermal sutures and a running 4-0 Monocryl subcuticular closure. Next we moved onto the right lower chest wall. After injection of local anesthetic a 3 cm incision was created over the palpable mass. A 3 cm x 2 cm x 2 cm fatty mass was dissected from the surrounding tissue. The wound was closed in layers using multiple interrupted 3-0 Vicryl dermal sutures and a running 4-0 Monocryl subcuticular closure. Next we moved onto the right upper abdominal wall mass. After injection of local anesthetic a 3 cm incision was created over the palpable mass. A 3 cm x 2 cm x 2 cm fatty mass was dissected from the surrounding tissue. The wound was c losed in layers using multiple interrupted 3-0 Vicryl dermal sutures and a running 4-0 Monocryl subcuticular closure. Next we moved onto the left lower chest wall. After injection of local anesthetic a 3 cm incision was created over the palpable mass. A 3 cm x 2 cm x 2 cm fatty mass was dissected from the surrounding tissue. The wound was closed in layers using multiple interrupted 3-0 Vicryl dermal sutures and a running 4-0 Monocryl subcuticular closure. All the specimens were sent together. All the incisions were closed and covered with Steri-Strips and a Band-Aid. EBL: 10 mL Post-operative Condition: stable Disposition: PACU
[2022-10-17 15:45] VITALS: BP 135/81; PULSE 60; RESP 17; TEMP 36.6; O2SAT 98
== END 2022-10-17 15:45 | disposition home or self-care (01) ==
PROVIDERS: PCP Family Medicine; Referring Provider Surgery; Visit Provider Surgery
PROC: (CPT 27043; principal; 2022-10-17 14:15)
DX: D17.1 Benign lipomatous neoplasm of skin and subcutaneous tissue of trunk (principal)
CPT/HCPCS: 27043; 21552 ×2; 22903

== ENCOUNTER → 2023-01-19 10:59 | Outpatient (CLI) | payer MEDICARE, OTHER, SELFPAY ==
[2018-02-15 14:10] VITALS: BMI 29.5
[2023-01-19 12:12] LABS: Add Manual Diff / Slide Review NO; Basophils Absolute Auto 0 /uL (0-100); Basophils Percent Auto 0.9 % (0-2); Eosinophils Absolute Auto 200 /uL (0-450); Eosinophils Percent Auto 2.9 % (2-4); Hematocrit 41.3 % (41-53); Hemoglobin 14.1 g/dL (13.5-17.5); Lymphocytes Absolute Auto 800 /uL (1100-4500); Lymphocytes Percent Auto 15.9 % (25-40); Mean Corpuscular HGB Conc 34.1 % (30-36); Mean Corpuscular Hemoglobin 32.9 PG (26-34); Mean Corpuscular Volume 96.4 fL (80-100); Monocytes Absolute Auto 500 /uL (0-900); Monocytes Percent Auto 10.1 % (3-14); Neutrophils Absolute Auto 3700 /uL (1500-7000); Neutrophils Percent Auto 70.2 % (50-75); Platelet Count 286 X10^3/uL (150-400); Red Blood Cell Count 4.29 X10^6/uL (4.5-5.9); Red Cell Distribution Width 14.2 % (11.6-14.8); White Blood Cell Count 5.2 X10^3/uL (4.5-11.0)
[2023-01-19 12:18] LABS: Hemoglobin A1C% w Est Avg Glu 5.4 % (4.0-6.0)
[2023-01-19 12:27] LABS: BUN Creatinine Ratio 16.8 (6-22); Blood Urea Nitrogen 16 mg/dL (9-20); Calcium 9.5 mg/dL (8.4-10.2); Carbon Dioxide 31 mmol/L (22-32); Chloride 102 mmol/L (98-107); Estimated Glomerular Filt Rate > 60 mL/min (>60); Glucose 100 mg/dL (80-110); HEMOLYSIS < 15 (0-50); Potassium 4.1 mmol/L (3.4-5.1); Sodium 138 mmol/L (137-145)
== END ==
PROVIDERS: PCP Family Medicine; Referring Provider Orthopaedic Surgery Foot and Ankle Surgery; Visit Provider Orthopaedic Surgery Foot and Ankle Surgery
DX: Z01.818 Encounter for other preprocedural examination (principal); R73.9 Hyperglycemia, unspecified; Z01.812 Encounter for preprocedural laboratory examination
CPT/HCPCS: 36415; 80048; 83036; 85025; 93005

== ENCOUNTER → 2023-01-31 11:33 | Outpatient (CLI) | payer MEDICARE, OTHER, SELFPAY ==
[2018-02-15 14:10] VITALS: BMI 29.5
[2023-01-31 12:38] LABS: Add Manual Diff / Slide Review NO; Basophils Absolute Auto 0 /uL (0-100); Basophils Percent Auto 0.5 % (0-2); Eosinophils Absolute Auto 100 /uL (0-450); Eosinophils Percent Auto 1.9 % (2-4); Hemoglobin 14.2 g/dL (13.5-17.5); Lymphocytes Absolute Auto 800 /uL (1100-4500); Lymphocytes Percent Auto 12.6 % (25-40); Mean Corpuscular HGB Conc 33.8 % (30-36); Mean Corpuscular Hemoglobin 32.7 PG (26-34); Mean Corpuscular Volume 96.8 fL (80-100); Monocytes Absolute Auto 600 /uL (0-900); Monocytes Percent Auto 9.7 % (3-14); Neutrophils Absolute Auto 5000 /uL (1500-7000); Neutrophils Percent Auto 75.3 % (50-75); Platelet Count 293 X10^3/uL (150-400); Red Blood Cell Count 4.34 X10^6/uL (4.5-5.9); Red Cell Distribution Width 13.9 % (11.6-14.8); White Blood Cell Count 6.7 X10^3/uL (4.5-11.0)
[2023-01-31 12:54] LABS: Alanine Aminotransferase 17 IU/L (<50); Albumin 4.4 g/dL (3.5-5.0); Albumin Globulin Ratio 1.4 (1.0-2.8); Alkaline Phosphatase 52 U/L (38-126); Aspartate Aminotransferase 21 IU/L (17-59); BUN Creatinine Ratio 15.7 (6-22); Bilirubin Total 0.8 mg/dL (0.2-1.3); Blood Urea Nitrogen 14 mg/dL (9-20); Carbon Dioxide 29 mmol/L (22-32); Chloride 98 mmol/L (98-107); Cholesterol 253 mg/dL (140-199); Estimated Glomerular Filt Rate > 60 mL/min (>60); Globulin 3.2 g/dL (1.7-4.1); Glucose 99 mg/dL (80-110); HDL Cholesterol 55 mg/dL (40-60); HEMOLYSIS < 15 (0-50); LDL Cholesterol Calculated 162 mg/dL (<100); Potassium 4.7 mmol/L (3.4-5.1); Sodium 137 mmol/L (137-145); Total Protein 7.6 g/dL (6.3-8.2); Triglycerides 179 mg/dL (35-150)
[2023-01-31 13:21] LABS: Hemoglobin A1C% w Est Avg Glu 5.5 % (4.0-6.0)
[2023-01-31 13:24] LABS: TSH w/ Reflex to FT4 1.89 uIU/mL (0.47-4.68)
== END ==
PROVIDERS: PCP Family Medicine; Referring Provider Family Medicine; Visit Provider Family Medicine
DX: Z13.1 Encounter for screening for diabetes mellitus (principal); Z13.220 Encounter for screening for lipoid disorders; Z12.5 Encounter for screening for malignant neoplasm of prostate; Z13.29 Encounter for screening for other suspected endocrine disorder
CPT/HCPCS: 36415; 80053; 80061; 83036; 84443; 85025

== ENCOUNTER → 2023-01-31 | Outpatient (CLI) | payer MEDICARE, OTHER, SELFPAY ==
[2018-02-15 14:10] VITALS: BMI 29.5
== END ==
PROVIDERS: PCP Family Medicine; Referring Provider Family Medicine; Visit Provider Family Medicine

== ENCOUNTER → 2023-12-03 09:04 | Outpatient (CLI) | payer MEDICARE, OTHER, SELFPAY ==
[2018-02-15 14:10] VITALS: BMI 29.5
--- NOTE | 2023-12-03 09:05 | DI.ECHO.S_ITS ---
[place] [place] [facility]---------+ [facility] : : [address] : : [place] : : [id number] : : Phone: [phone] Echocardiogram Report + + :Name: PIO JUÁREZ Study Date: 12/03/2023 Height: 69.5 in: :[facility] [facility] [employer] [facility] ReadingLocation: Weight: 166 lb : : Gender: Male BSA: 1.9 m2 : :: 1950 Age: 73 yrs BP: 128/83 mmHg: :Reason For Study: PAT : :Ordering Physician: YUE GOLDSTEIN Performed By: Paris Grady : :Referring: YUE GOLDSTEIN : + + Interpretation Summary 1. The left ventricular contractility is normal. Estimate ejection fraction is 50 to 55% with no segmental wall motion abnormalities. No LVH. Unable to comment on diastolic function. Normal LV size. 2. The right ventricular contractility is normal. Normal RV size. 3. Both atria are of normal size. 4. No significant valvular abnormalities. 5. No obvious intracardiac shunts. 6. No obvious lesions or masses nor thrombi. 7. No hemodynamically significant pericardial effusion. 8. Low right-sided filling pressures. Conclusion: Low normal left ventricular systolic function with no significant valvular abnormalities Procedure: A two-dimensional transthoracic echocardiogram with color flow and Doppler was performed. The study quality was technically difficult. There is no prior echocardiogram noted for this patient. The patient was in sinus rhythm with heart rates between 58-62 bpm during the exam. Left Ventricle: The left ventricle is normal in size and wall thickness. The ejection fraction is estimated to be 50-55%. Right Ventricle: The right ventricle is normal in size and function. Atria: The left atrial size is normal. Right atrial size is normal. There is no Doppler evidence for an interatrial shunt. Mitral Valve: The mitral valve is normal in structure and function. There is mild mitral regurgitation. Aortic Valve: The aortic valve is trileaflet. The aortic valve opens well. There is no aortic valve stenosis. There is trace aortic regurgitation. Tricuspid Valve: The tricuspid valve is normal in structure and function. There is trace tricuspid regurgitation. The right ventricular systolic pressure is estimated to be at least 25 mmHg based on an estimated right atrial pressure of 3 mm Hg. Pulmonic Valve: The pulmonic valve is not well seen, but is grossly normal. There is trace pulmonic regurgitation. Great Vessels: The aortic root is normal size. The dimensions of the ascending aorta are normal. The IVC is of normal diameter and collapses greater than 50% with a sniff. This suggests a low right atrial pressure of 3 mm Hg. Pericardium/ Pleura There is no pericardial effusion. There is no pleural effusion. MMode/2D Measurements & Calculations LVIDd: 4.8 cm LVOT diam: 2.2 cm LVIDs: 3.6 cm Ao root diam: 3.4 cm FS: 25.7 % asc Aorta Diam: 3.3 cm IVSd: 0.82 cm Ao Arch Diam (Prox Trans): 2.4 cm LVPWd: 0.85 cm LV vidales. diameter/BSA (cm/m^2): 2.5 LV sys. diameter/BSA (cm/m^2): 1.9 LA A2 area: 18.5 cm2 RA long axis: 5.3 cm LA A4 area: 15.9 cm2 RA area: 18.6 cm2 LA length (vol): 5.0 cm RA vol: 55.9 ml LA vol: 49.4 ml RA : 29.1 ml/m2 LA vol index: 25.7 ml/m2 IVC diam: 1.5 cm RVD1 (basal): 3.3 cm TAPSE: 1.9 cm Doppler Measurements & Calculations Ao V2 max: 107.1 cm/sec LVOT Max Danny: 75.9 cm/sec Ao V2 mean: 81.4 cm/sec LV V1 max P.3 mmHg Ao max P.6 mmHg LV V1 VTI: 19.1 cm Ao mean P.8 mmHg COURTNEY(I,D): 2.6 cm2 Ao V2 VTI: 27.4 cm COURTNEY(V,D): 2.7 cm2 sev ratio: 0.70 COURTNEY indexed to BSA (cm^2/m^2): 1.4 MV E max danny: 77.3 cm/sec TR max danny: 231.7 cm/sec MV A max danny: 60.1 cm/sec TR max P.5 mmHg MV E/A: 1.3 PA V2 max: 121.0 cm/sec Med Peak E' Danny: 8.4 cm/sec PA V2 mean: 86.0 cm/sec E/E' med: 9.2 PA mean P.3 mmHg Lat Peak E' Danny: 9.3 cm/sec PA pr(Accel): 41.3 mmHg E/E' lat: 8.3 E/e' average: 8.8 MV dec time: 0.31 sec SV(LVOT): 71.8 ml Reading Physician:
== END ==
LOC: ECHO 09:05
PROVIDERS: PCP Family Medicine; Referring Provider Internal Medicine; Visit Provider Internal Medicine
DX: I47.19 Other supraventricular tachycardia (principal); I34.0 Nonrheumatic mitral (valve) insufficiency
CPT/HCPCS: 93306

== ENCOUNTER → 2024-06-13 09:43 | Outpatient (CLI) | payer MEDICARE, OTHER, SELFPAY ==
[2018-02-15 14:10] VITALS: BMI 29.5
--- NOTE | 2024-06-13 09:44 | DI.CT.S_ITS ---
PROCEDURE: CT LUNG LOW DOSE SCREENING INDICATIONS: HX OF SMOKING/ TECHNIQUE: Noncontrast 2.0-2.5 mm thick sections acquired from the pulmonary apices to the posterior costophrenic angles. 7 mm thick axial MIP, and 5 mm coronal and sagittal reformats were then acquired. For radiation dose reduction, the following was used: automated exposure control, adjustment of mA and/or kV according to patient size. COMPARISON: [facility], CR, XR CHEST 2V, 08/03/2020, 11:11. FINDINGS: Image quality: Diagnostic. Lower Neck: No enlarged lymph nodes. Thyroid: No thyroid nodules which require sonographic follow up, per consensus guidelines. Axillae: No enlarged lymph nodes. Chest Wall: Unremarkable. Bones: Unremarkable. Lungs and Pleura: No pneumothorax or pleural effusions. No consolidation or suspicious nodules. Centrilobular emphysematous change at the upper lungs. Heart: Heart size is normal. No pericardial effusion. Thoracic Vessels: The aorta and pulmonary arteries demonstrate normal size. Mediastinum and Mavis: No enlarged lymph nodes. Esophagus: No wall thickening. No hiatal hernia. Upper Abdomen: Visualized upper abdomen solid organs and bowel loops appear normal. IMPRESSION: No suspicious pulmonary nodules. LUNG-RADS 1; continued annual screening, if eligible. Clinically Significant Non-pulmonary Findings: Centrilobular mild emphysematous change at the upper lungs. Dictated by: Mundo Guo M.D. on 06/13/2024 at 13:45 Approved by: Mundo Guo M.D. on 06/13/2024 at 13:47
== END ==
LOC: CT 09:43
PROVIDERS: PCP Family Medicine; Referring Provider Family Medicine; Visit Provider Family Medicine
DX: Z87.891 Personal history of nicotine dependence (principal); Z12.2 Encounter for screening for malignant neoplasm of respiratory organs
CPT/HCPCS: 71271

== ENCOUNTER → 2024-06-18 11:47 | Outpatient (CLI) | payer MEDICARE, OTHER, SELFPAY ==
[2018-02-15 14:10] VITALS: BMI 29.5
--- NOTE | 2024-06-18 11:49 | DI.US.S_ITS ---
PROCEDURE: US ABD AORTA ANEURYSM SCREEN INDICATIONS: HX OF SMOKING TECHNIQUE: Real time scanning was performed of the aorta and iliac arteries, with image documentation. COMPARISON: None. FINDINGS: Aorta: Proximal aortic diameter measures 2.7 cm. Mid-aorta measures 1.9 cm. Distal aortic diameter is 1.9 cm. Iliac arteries: Right common iliac artery measures 1.0 cm. Left common iliac artery measures 1.2 cm. IMPRESSION: No sonographic evidence for abdominal aortic aneurysm. Based on published consensus criteria, recommend follow-up ultrasound in 5 years to document continued stability. Dictated by: Everardo Almendarez M.D. on 06/18/2024 at 13:49 Approved by: Everardo Almendarez M.D. on 06/18/2024 at 13:50
== END ==
PROVIDERS: PCP Family Medicine; Referring Provider Family Medicine; Visit Provider Family Medicine
DX: Z13.6 Encounter for screening for cardiovascular disorders; Z87.891 Personal history of nicotine dependence
CPT/HCPCS: 76706